=== PATIENT | male | born 1950 | race Caucasian/White ===

== ENCOUNTER → 2017-08-02 | Outpatient (CLI) | payer MEDICARE ==
[2016-04-21 10:34] VITALS: BMI 36.0
[~2017-08-02] MED LIST: ATOR20TA65 PO; ATOR40TA69 PO; CEPH500T7 PO; CIPR-344 PO; DOCU-416 PO; FAMO20TA28 PO; FLUO-202 PO; FLUO20TA2 PO; FLUO40CA67 PO; FLUO40CA76 PO; FLUO60TA PO; HYDR12.561 PO; LISI-351 PO; LISI-362 PO; METF-410 PO; METF-420 PO; SULF-198 PO; TRAZ-163 PO
== END ==
LOC: LAB 08:34
PROVIDERS: ATTEND Nurse Practitioner Family
DX: E11.65 Type 2 diabetes mellitus with hyperglycemia (principal); Z79.899 Other long term (current) drug therapy
CPT/HCPCS: 36415; 82040; 82247; 82310; 82374; 82435; 82565; 82947; 83036; 84075; 84132; 84155; 84295; 84450; 84460; 84520

== ENCOUNTER 2017-09-12 21:24 | Emergency (ER) | payer MEDICARE ==
[2016-04-21 10:34] VITALS: Wt 102.1 kg
--- NOTE | 2017-09-12 21:37 | ER Report ---
History and Physical Time Seen By MD: 21:37 Hx. of Stated Complaint: Patient is contemplating HPI/ROS CHIEF COMPLAINT: Suicidal ideation HISTORY OF PRESENT ILLNESS: 66-year-old male presents ambulatory to the ER states he's having suicidal ideation. He has no specific plan. He was recently evicted from his apartment 3 days ago. He's been living with some friends who were not supportive of him in any way. He was wandering around town today overwhelmed with his situation. He is noninsulin-dependent diabetic. He is poorly compliant in his management of his diabetes. He denies drug or alcohol use. Patient has a distant history of admission to [facility] in 2013 for depression and suicidal ideation. REVIEW OF SYSTEMS: Respiratory: No cough, no dyspnea. Cardiovascular: No chest pain, no palpitations. Gastrointestinal: No vomiting, no abdominal pain. Musculoskeletal: No back pain. Allergies: Coded Allergies: No Known Drug Allergies (Unverified , 04/19/16) Home Meds Active Scripts Metformin Hcl (METFORMIN HCL) 1,000 Mg Tablet, 1 TAB PO BID, #60 TAB 0 Refills Prov:RINKU PALMER NP 02/25/16 Lisinopril/Hydrochlorothiazide (LISINOPRIL-HCTZ 10-12.5 MG TAB) 1 Each Tablet, 1 TAB PO DAILY, #30 TAB 0 Refills Prov:NAZ WRIGHT MD 02/11/16 Fluoxetine Hcl (PROZAC) 40 Mg Capsule, 1 TAB PO QDAY, #90 CAPSULE 1 Refill Prov:NAZ WRIGHT MD 08/03/15 Reported Medications Docusate Sodium (COLACE) 100 Mg Capsule, 100 MG PO BID, #30 CAPSULE 05/12/16 Famotidine (PEPCID) 20 Mg Tablet, 20 MG PO BID, #20 TAB 04/26/16 Discontinued Reported Medications Ciprofloxacin Hcl (CIPRO) 500 Mg Tablet, 500 MG PO BID, #30 Start Sunday PM 05/12/16 Reviewed Nurses Notes: Yes Old Medical Records Reviewed: Yes Hx Smoking: Yes (SMOKED 1 1/2 PPD FOR 35 YEARS) Smoking Status: Former Smoker Exposure to Second Hand Smoke?: No Hx Substance Use Disorder: No Hx Alcohol Use: Yes Constitutional Vital Sign - Last 24 Hours 09/12/17 09/12/17 09/12/17 09/12/17 21:28 21:31 21:34 21:36 Temp 98.2 Pulse 92 103 Resp 20 B/P (MAP) 191/109 191/109 (136) 173/113 (133) Pulse Ox 93 93 O2 Delivery Room Air 09/12/17 09/12/17 09/12/17 09/12/17 21:39 21:44 21:49 21:54 Pulse 92 84 85 86 Pulse Ox 91 94 91 91 09/12/17 09/12/17 09/12/17 09/12/17 21:59 22:04 22:09 22:14 Pulse 86 90 87 84 Pulse Ox 94 88 89 89 09/12/17 09/12/17 09/12/17 09/12/17 22:19 22:24 22:29 22:34 Pulse 86 84 88 83 Pulse Ox 89 88 88 88 09/12/17 09/12/17 09/12/17 09/12/17 22:39 22:44 22:49 22:54 Pulse 84 88 Pulse Ox 93 96 87 91 09/12/17 09/12/17 09/12/17 09/12/17 22:59 23:00 23:04 23:09 Pulse 82 81 B/P (MAP) 176/112 (133) Pulse Ox 92 89 92 09/12/17 23:14 Pulse 86 Pulse Ox 95 Physical Exam Vital signs stable, blood pressure grossly elevated afebrile, pulse ox normal General Appearance: The patient is alert, has no immediate need for airway protection and no current signs of toxicity. No acute distress, tangential in his reasoning HEENT: Pupils equal and round no injection. Oropharynx without redness or exudate, mucous members are moist Respiratory: Chest is non tender, lungs are clear to auscultation. Cardiac: regular rate and rhythm Gastrointestinal: Abdomen is soft and non tender, no masses, bowel sounds normal. Musculoskeletal: Neck: Neck is supple and non tender. No thyromegaly, no lymphadenopathy Extremities have full range of motion and are non tender. No edema, no calf tenderness Skin: No rashes or lesions. DIFFERENTIAL DIAGNOSIS: After history and physical exam differential diagnosis was considered for depression including functional and major depression, situational depression, medication side effect, drugs and alcohol abuse. Medical Decision Making Data Points Result Diagram: 09/12/17220209/12/172202 Laboratory Hematology Test 09/12/17 21:32 09/12/17 22:03 Urine Color Yellow Urine Clarity Clear Urine pH 5.0 pH (4.8-9.5) Urine Specific Gloster 1.025 Urine Protein 100 mg/dL (NEGATIVE) Urine Glucose (UA) 500 mg/dL (NEGATIVE) Urine Ketones Negative mg/dL (NEGATIVE) Urine Blood Small (NEGATIVE) Urine Nitrite Negative (NEGATIVE) Urine Bilirubin Negative (NEGATIVE) Urine Urobilinogen Negative mg/dL (0.2-1.9) Urine Leukocyte Esterase Negative (NEGATIVE) Urine RBC <1 /HPF (0-2/HPF) Urine WBC 1 /HPF (0-5/HPF) Urine Squamous Epithelial Cells Few /LPF (</=FEW) Urine Bacteria Negative /HPF (NONE-FEW) Urine Mucus None /HPF (NONE-FEW) Urine Opiates Screen Negative Urine Barbiturates Screen Negative Ur Tricyclic Antidepressants Screen Negative Urine Phencyclidine Screen Negative Urine Amphetamines Screen Negative Urine Benzodiazepines Screen Negative Urine Cocaine Screen Negative Urine Cannabinoids Screen Negative Red Blood Count 5.55 M/uL (4.00-5.60) Mean Corpuscular Volume 79.6 fL (80.0-96.0) Mean Corpuscular Hemoglobin 27.4 pg (26.0-33.0) Mean Corpuscular Hemoglobin Concent 34.4 g/dL (32.0-36.0) Red Cell Distribution Width 14.8 % (11.5-14.5) Mean Platelet Volume 8.7 fL (7.2-11.1) Neutrophils (%) (Auto) 60.9 % (39.4-72.5) Lymphocytes (%) (Auto) 28.3 % (17.6-49.6) Monocytes (%) (Auto) 7.8 % (4.1-12.4) Eosinophils (%) (Auto) 1.7 % (0.4-6.7) Basophils (%) (Auto) 1.3 % (0.3-1.4) Nucleated RBC Relative Count (auto) 0.2 /100WBC Neutrophils # (Auto) 6.1 K/uL (2.0-7.4) Lymphocytes # (Auto) 2.8 K/uL (1.3-3.6) Monocytes # (Auto) 0.8 K/uL (0.3-1.0) Eosinophils # (Auto) 0.2 K/uL (0.0-0.5) Basophils # (Auto) 0.1 K/uL (0.0-0.1) Nucleated RBC Absolute Count (auto) 0.02 K/uL Sodium Level 130 mmol/L (137-145) Potassium Level 4.2 mmol/L (3.5-5.0) Chloride Level 97 mmol/L (98-107) Carbon Dioxide Level 22 mmol/L (22-30) Blood Urea Nitrogen 22 mg/dl (9-21) Creatinine 1.10 mg/dl (0.66-1.25) Glomerular Filtration Rate Calc > 60.0 Random Glucose 351 mg/dl (75-110) Calcium Level 8.5 mg/dl (8.4-10.2) Magnesium Level 1.9 mg/dl (1.7-2.2) Total Bilirubin 0.8 mg/dl (0.2-1.3) Aspartate Amino Transf (AST/SGOT) 36 U/L (0-35) Alanine Aminotransferase (ALT/SGPT) 55 U/L (0-56) Alkaline Phosphatase 80 U/L (0-126) Total Protein 6.9 gm/dl (6.3-8.2) Albumin 3.7 g/dl (3.5-5.0) Salicylates Level < 10 mg/L Salicylate Last Dose Date unk Acetaminophen Level < 10 ug/ml Serum Alcohol < 10 mg/dl Chemistry Test 09/12/17 21:32 09/12/17 22:03 Urine Color Yellow Urine Clarity Clear Urine pH 5.0 pH (4.8-9.5) Urine Specific Gloster 1.025 Urine Protein 100 mg/dL (NEGATIVE) Urine Glucose (UA) 500 mg/dL (NEGATIVE) Urine Ketones Negative mg/dL (NEGATIVE) Urine Blood Small (NEGATIVE) Urine Nitrite Negative (NEGATIVE) Urine Bilirubin Negative (NEGATIVE) Urine Urobilinogen Negative mg/dL (0.2-1.9) Urine Leukocyte Esterase Negative (NEGATIVE) Urine RBC <1 /HPF (0-2/HPF) Urine WBC 1 /HPF (0-5/HPF) Urine Squamous Epithelial Cells Few /LPF (</=FEW) Urine Bacteria Negative /HPF (NONE-FEW) Urine Mucus None /HPF (NONE-FEW) Urine Opiates Screen Negative Urine Barbiturates Screen Negative Ur Tricyclic Antidepressants Screen Negative Urine Phencyclidine Screen Negative Urine Amphetamines Screen Negative Urine Benzodiazepines Screen Negative Urine Cocaine Screen Negative Urine Cannabinoids Screen Negative White Blood Count 10.1 k/uL (4.5-11.0) Red Blood Count 5.55 M/uL (4.00-5.60) Hemoglobin 15.2 g/dL (14.0-18.0) Hematocrit 44.2 % (42.0-52.0) Mean Corpuscular Volume 79.6 fL (80.0-96.0) Mean Corpuscular Hemoglobin 27.4 pg (26.0-33.0) Mean Corpuscular Hemoglobin Concent 34.4 g/dL (32.0-36.0) Red Cell Distribution Width 14.8 % (11.5-14.5) Platelet Count 264 K/uL (150-450) Mean Platelet Volume 8.7 fL (7.2-11.1) Neutrophils (%) (Auto) 60.9 % (39.4-72.5) Lymphocytes (%) (Auto) 28.3 % (17.6-49.6) Monocytes (%) (Auto) 7.8 % (4.1-12.4) Eosinophils (%) (Auto) 1.7 % (0.4-6.7) Basophils (%) (Auto) 1.3 % (0.3-1.4) Nucleated RBC Relative Count (auto) 0.2 /100WBC Neutrophils # (Auto) 6.1 K/uL (2.0-7.4) Lymphocytes # (Auto) 2.8 K/uL (1.3-3.6) Monocytes # (Auto) 0.8 K/uL (0.3-1.0) Eosinophils # (Auto) 0.2 K/uL (0.0-0.5) Basophils # (Auto) 0.1 K/uL (0.0-0.1) Nucleated RBC Absolute Count (auto) 0.02 K/uL Glomerular Filtration Rate Calc > 60.0 Calcium Level 8.5 mg/dl (8.4-10.2) Magnesium Level 1.9 mg/dl (1.7-2.2) Total Bilirubin 0.8 mg/dl (0.2-1.3) Aspartate Amino Transf (AST/SGOT) 36 U/L (0-35) Alanine Aminotransferase (ALT/SGPT) 55 U/L (0-56) Alkaline Phosphatase 80 U/L (0-126) Total Protein 6.9 gm/dl (6.3-8.2) Albumin 3.7 g/dl (3.5-5.0) Salicylates Level < 10 mg/L Salicylate Last Dose Date unk Acetaminophen Level < 10 ug/ml Serum Alcohol < 10 mg/dl Toxicology Test 09/12/17 21:32 09/12/17 22:03 Urine Opiates Screen Negative Urine Barbiturates Screen Negative Ur Tricyclic Antidepressants Screen Negative Urine Phencyclidine Screen Negative Urine Amphetamines Screen Negative Urine Benzodiazepines Screen Negative Urine Cocaine Screen Negative Urine Cannabinoids Screen Negative Salicylates Level < 10 mg/L Salicylate Last Dose Date unk Acetaminophen Level < 10 ug/ml Serum Alcohol < 10 mg/dl Urinalysis Test 09/12/17 21:32 Urine Color Yellow Urine Clarity Clear Urine pH 5.0 pH (4.8-9.5) Urine Specific Gloster 1.025 Urine Protein 100 mg/dL (NEGATIVE) Urine Glucose (UA) 500 mg/dL (NEGATIVE) Urine Ketones Negative mg/dL (NEGATIVE) Urine Blood Small (NEGATIVE) Urine Nitrite Negative (NEGATIVE) Urine Bilirubin Negative (NEGATIVE) Urine Urobilinogen Negative mg/dL (0.2-1.9) Urine Leukocyte Esterase Negative (NEGATIVE) Urine RBC <1 /HPF (0-2/HPF) Urine WBC 1 /HPF (0-5/HPF) Urine Squamous Epithelial Cells Few /LPF (</=FEW) Urine Bacteria Negative /HPF (NONE-FEW) Urine Mucus None /HPF (NONE-FEW) ED Course/Re-evaluation ED Course Patient was minute to an examination room. H&P was done. The differential diagnoses was considered. On clinical examination. Patient has stable vital signs his blood pressure is elevated. He is expressing suicidal ideation. He voluntarily wants to be admitted to [facility]. Diagnostic evaluation is performed. Patient's medicated with lisinopril 10 mg for his blood pressure. His sodium is low at 1:30. His glucose is 350. I suspect he's not been compliant on his metformin and his blood pressure medication. He states he is homeless since she was kicked out of his apartment 3 days ago. He is medically cleared. He is admitted to behavioral service, case is discussed with Dr. Mann 09/12/2017 11:06:32 pm case discussed with Dr. Mann psychiatrist on-call, who accepts patient for admission to behavioral health Decision to Disposition Date: Sep 12, 2017 Decision to Disposition Time: 23:06 Depart Departure Latest Vital Signs Vital Signs Date Time Temp Pulse Resp B/P (MAP) Pulse Ox O2 Delivery O2 Flow Rate FiO2 09/12/17 23:14 86 95 09/12/17 23:00 176/112 (133) 09/12/17 21:28 98.2 20 Room Air Impression: Primary Impression: Depression with suicidal ideation Additional Impressions: Hyperglycemia due to type 2 diabetes mellitus Hypertension Elevated PSA Condition: Improved Disposition: XFER TO [facility] Problem Qualifiers Additional Impressions: Hyperglycemia due to type 2 diabetes mellitus 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
[2017-09-12 22:13] LABS: PLATELET COUNT, AUTOMATED 264 K/uL (150-450)
[2017-09-12 23:00] VITALS: BP 176/112
[2017-09-12] MEDS ORDERED: LISINOPRIL 10 MG TAB PO ONE (23:10)
[2017-09-13] MEDS ORDERED: ATOR40TA24 PO (10:11)
[2017-09-13] MEDS ORDERED: GLIP-152 PO (10:11)
[2017-09-13] MEDS ORDERED: LISI-362 PO (10:11)
== END 2017-09-12 23:20 ==
LOC: ER 21:43
DX: F32.9 Major depressive disorder, single episode, unspecified (principal); R45.851 Suicidal ideations; E11.65 Type 2 diabetes mellitus with hyperglycemia; I10 Essential (primary) hypertension
CPT/HCPCS: 80305; 81001; 83735; 84443; 85025; 99285; A9270; G0480; 80320; 80329; 82040; 82247; 82310; 82374; 82435; 82565; 82947; 84075; 84132; 84155; 84295; 84450; 84460; 84520

== ENCOUNTER 2017-09-12 23:04 | Inpatient (IN) | payer MEDICARE ==
[2016-04-21 10:34] VITALS: Ht 162.6 cm; Wt 102.1 kg
[~2017-09-12] VITALS: Ht 162.6 cm; Wt 102.1 kg
[2017-09-13 00:34] VITALS: BP 161/103
[2017-09-13] MEDS ORDERED: MAG HYD/AL HYD/SIMETH 30ML UDC PO PRN (01:00)
[2017-09-13] MEDS ORDERED: ACETAMINOPHEN 325 MG TAB PO PRN (01:00)
[2017-09-13 07:29] LABS: PLATELET COUNT, AUTOMATED 255 K/uL (150-450)
[2017-09-13] MEDS: MULTIVITAMINS TAB PO SCH (08:33)
[2017-09-13] MEDS ORDERED: LISINOPRIL 20 MG TAB PO SCH (09:25)
[2017-09-13] MEDS ORDERED: glipiZIDE 5 MG TAB PO SCH (09:25)
[2017-09-13] MEDS: metFORMIN HCL XR 500 MG TABCR PO SCH ×2 (09:40→21:00)
[2017-09-13] MEDS ORDERED: glipiZIDE XL 5 MG TABCR PO SCH (09:50)
[2017-09-13] MEDS ORDERED: ATOR40TA24 PO (10:11)
[2017-09-13] MEDS ORDERED: GLIP-152 PO (10:11)
[2017-09-13] MEDS ORDERED: LISI-362 PO (10:11)
[2017-09-13 11:43] VITALS: BP 138/88
[2017-09-13] MEDS ORDERED: INFLUENZA VIRUS VAC 0.5 ML SYR IM ONLY ONE (14:00)
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
[2017-09-13] MEDS: glipiZIDE 5 MG TAB PO SCH (21:07)
[2017-09-13 23:04] VITALS: BP 166/94
[2017-09-14 03:30] VITALS: BP 168/98
[2017-09-14 06:00] VITALS: BP 132/72
[2017-09-14] MEDS: MULTIVITAMINS TAB PO SCH (08:45)
[2017-09-14] MEDS: OMEGA-3 500 MG CAP PO SCH (08:45)
[2017-09-14] MEDS: metFORMIN HCL XR 500 MG TABCR PO SCH ×2 (08:45→20:59)
[2017-09-14] MEDS: glipiZIDE 5 MG TAB PO SCH (08:45)
[2017-09-14] MEDS: CHOLECALCIFEROL 1000 UNIT TAB PO SCH (08:46)
[2017-09-14] MEDS: LISINOPRIL PO SCH (08:48)
[2017-09-14] MEDS ORDERED: LISINOPRIL 20 MG TAB PO SCH (09:00)
[2017-09-14 12:50] VITALS: BP 185/102
--- NOTE | 2017-09-14 15:47 | BHS Progress Note ---
[facility] - Subjective Progress Notes Subjective Pt seen in treatment team meeting with his outpatient therapist and a staff person from [facility] present on speaker phone. Pt reporting "pretty good mood". Expressing frustration about how inspector tool at his housing had been critical of the unkempt condition of his bathroom. Able to problem- solve effectively today regarding hiring someone to support him with housekeeping. Denies SI. Denies depressed mood. Sleep and appetite are good. Blood sugar this am was 127. Of note, pt's MOCA score is 17, and result has NOT changed appreciably since pt's last admission here in 2012-- thus it does NOT appear that he has a dementia that is progressing, but rather underlying unspecified neurocognitive disorder-- mostly involves verbal/word-finding. Suicidal Ideation: None Homicidal Ideation: None [facility] - Objective Physical Exam Vital Signs Vital Signs 09/14/17 12:50 Temp 99.6 Pulse 81 Resp 16 B/P (MAP) 185/102 (129) Pulse Ox 94 O2 Delivery Room Air Muscle Strength and Tone: WNL Gait and Station: Steady Allergies Reviewed: Yes Mental Status Exam General Appearance: Casual, Good Eye Contact, Cooperative, Polite, Good Interaction Speech: Clear, Spontaneous, Normal Rate, Normal Rhythm, Normal Volume, Normal Tone Mood: Euthymic Affect: Calm Thought Process: Organized, Logical, Goal Directed Thought Content: No Suicidal Ideation, No Homicidal Ideation, No Delusions, No Auditory Halllucinations, No Visual Hallucinations, No Thought Broadcasting, No Ideas of Reference, No Obsessions, No Compulsions, No Other Sensorium: Clear Cognition: Alert & Oriented-Person, Alert & Oriented-Place, Alert & Oriented- Time, Nkphp-Ctosscrj-Xceurrjen Memory: Other (Some deficits.) Intelligence: Average Insight Judgment: Fair Result Diagram: 09/13/17 0655 09/13/17 0655 Lab Hematology Test 09/13/17 06:55 09/14/17 05:50 Red Blood Count 5.57 M/uL (4.00-5.60) Mean Corpuscular Volume 79.0 fL (80.0-96.0) Mean Corpuscular Hemoglobin 27.1 pg (26.0-33.0) Mean Corpuscular Hemoglobin Concent 34.4 g/dL (32.0-36.0) Red Cell Distribution Width 14.7 % (11.5-14.5) Mean Platelet Volume 8.6 fL (7.2-11.1) Neutrophils (%) (Auto) 61.2 % (39.4-72.5) Lymphocytes (%) (Auto) 27.1 % (17.6-49.6) Monocytes (%) (Auto) 7.8 % (4.1-12.4) Eosinophils (%) (Auto) 2.8 % (0.4-6.7) Basophils (%) (Auto) 1.1 % (0.3-1.4) Nucleated RBC Relative Count (auto) 0.3 /100WBC Neutrophils # (Auto) 5.0 K/uL (2.0-7.4) Lymphocytes # (Auto) 2.2 K/uL (1.3-3.6) Monocytes # (Auto) 0.6 K/uL (0.3-1.0) Eosinophils # (Auto) 0.2 K/uL (0.0-0.5) Basophils # (Auto) 0.1 K/uL (0.0-0.1) Nucleated RBC Absolute Count (auto) 0.02 K/uL Peripheral Blood Smear Yes Y/N Sodium Level 135 mmol/L (137-145) Potassium Level 3.9 mmol/L (3.5-5.0) Chloride Level 100 mmol/L (98-107) Carbon Dioxide Level 23 mmol/L (22-30) Blood Urea Nitrogen 17 mg/dl (9-21) Creatinine 1.00 mg/dl (0.66-1.25) Glomerular Filtration Rate Calc > 60.0 Random Glucose 271 mg/dl (75-110) Hemoglobin A1c 10.3 % (4.6-6.0) Calcium Level 8.9 mg/dl (8.4-10.2) Total Bilirubin 0.8 mg/dl (0.2-1.3) Aspartate Amino Transf (AST/SGOT) 24 U/L (0-35) Alanine Aminotransferase (ALT/SGPT) 48 U/L (0-56) Alkaline Phosphatase 73 U/L (0-126) Total Protein 6.2 gm/dl (6.3-8.2) Albumin 3.4 g/dl (3.5-5.0) Vitamin D 25-Hydroxy < 13 ng/ml (30-100) Free Thyroxine 1.09 ng/dl (0.78-2.19) Whole Blood Glucose 127 mg/DL (75-110) Chemistry Test 09/13/17 06:55 09/14/17 05:50 White Blood Count 8.2 k/uL (4.5-11.0) Red Blood Count 5.57 M/uL (4.00-5.60) Hemoglobin 15.1 g/dL (14.0-18.0) Hematocrit 44.0 % (42.0-52.0) Mean Corpuscular Volume 79.0 fL (80.0-96.0) Mean Corpuscular Hemoglobin 27.1 pg (26.0-33.0) Mean Corpuscular Hemoglobin Concent 34.4 g/dL (32.0-36.0) Red Cell Distribution Width 14.7 % (11.5-14.5) Platelet Count 255 K/uL (150-450) Mean Platelet Volume 8.6 fL (7.2-11.1) Neutrophils (%) (Auto) 61.2 % (39.4-72.5) Lymphocytes (%) (Auto) 27.1 % (17.6-49.6) Monocytes (%) (Auto) 7.8 % (4.1-12.4) Eosinophils (%) (Auto) 2.8 % (0.4-6.7) Basophils (%) (Auto) 1.1 % (0.3-1.4) Nucleated RBC Relative Count (auto) 0.3 /100WBC Neutrophils # (Auto) 5.0 K/uL (2.0-7.4) Lymphocytes # (Auto) 2.2 K/uL (1.3-3.6) Monocytes # (Auto) 0.6 K/uL (0.3-1.0) Eosinophils # (Auto) 0.2 K/uL (0.0-0.5) Basophils # (Auto) 0.1 K/uL (0.0-0.1) Nucleated RBC Absolute Count (auto) 0.02 K/uL Peripheral Blood Smear Yes Y/N Glomerular Filtration Rate Calc > 60.0 Hemoglobin A1c 10.3 % (4.6-6.0) Calcium Level 8.9 mg/dl (8.4-10.2) Total Bilirubin 0.8 mg/dl (0.2-1.3) Aspartate Amino Transf (AST/SGOT) 24 U/L (0-35) Alanine Aminotransferase (ALT/SGPT) 48 U/L (0-56) Alkaline Phosphatase 73 U/L (0-126) Total Protein 6.2 gm/dl (6.3-8.2) Albumin 3.4 g/dl (3.5-5.0) Vitamin D 25-Hydroxy < 13 ng/ml (30-100) Free Thyroxine 1.09 ng/dl (0.78-2.19) Whole Blood Glucose 127 mg/DL (75-110) [facility] Assessment and Plan Ogjf-kw-Rhng Encounter Date: Sep 14, 2017 Pgnp-nc-Oydu Encounter Time: 10:00 [facility] Plan: Admit to Unit, Necessary Precautions, Individual/Group Therapy, Admin /Titrate Meds, Educate Patient Tobacco Medications: Started Problems: (1) Neurocognitive disorder Status: Chronic Assessment & Plan: MOCA score unchanged from previous admission. Overall score is 17, certainly indicating significant impairment-- pt not able to function safely without support. We are working on arranging home health nurse to monitor pt's medications, since it appears he may have not been taking them properly prior to admission. Also arranging support for housekeeping to maintain safe level of cleanliness. Additionally, low MOCA score with concrete thinking and word-finding deficits contributes to pt. not able to handle feedback-- he felt overly criticized and unable to utilize more sophisticated defenses, leading to anger, running away, and suicidal thoughts. (2) Depression with suicidal ideation Status: Acute Assessment & Plan: SI resolving. Pt denies depressed mood today. Concern that pt susceptible to regression again with SI if released from hospital prior to getting his housing situation sorted out. He still is quite "wounded" over his experience and felt overly criticized with feedback that his bathroom was dirty. Became emotional over this today, though did respond well to support. YESSY MORALES MD Sep 14, 2017 15:47
[2017-09-15 06:09] VITALS: BP 124/58
[2017-09-15] MEDS: CHOLECALCIFEROL 1000 UNIT TAB PO SCH (08:31)
[2017-09-15] MEDS: LISINOPRIL PO SCH (08:32)
[2017-09-15] MEDS: OMEGA-3 500 MG CAP PO SCH (08:32)
[2017-09-15] MEDS: metFORMIN HCL XR 500 MG TABCR PO SCH ×2 (08:32→21:39)
[2017-09-15] MEDS: glipiZIDE 5 MG TAB PO SCH (08:32)
[2017-09-15] MEDS: MULTIVITAMINS TAB PO SCH (08:32)
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
[2017-09-15] MEDS: CITALOPRAM HYDROBROM 20 MG TAB PO SCH (13:28)
[2017-09-15 13:35] VITALS: BP 138/88
[2017-09-15 22:45] VITALS: BP 148/82
[2017-09-16 05:30] VITALS: BP 136/82
[2017-09-16 07:00] VITALS: BP 171/105
[2017-09-16] MEDS: metFORMIN HCL XR 500 MG TABCR PO SCH ×2 (08:25→21:14)
[2017-09-16] MEDS: CHOLECALCIFEROL 1000 UNIT TAB PO SCH (08:25)
[2017-09-16] MEDS: OMEGA-3 500 MG CAP PO SCH (08:25)
[2017-09-16] MEDS: LISINOPRIL PO SCH (08:25)
[2017-09-16] MEDS: glipiZIDE 5 MG TAB PO SCH (08:26)
[2017-09-16] MEDS: CITALOPRAM HYDROBROM 20 MG TAB PO SCH (08:26)
[2017-09-16] MEDS: MULTIVITAMINS TAB PO SCH (08:26)
--- NOTE | 2017-09-16 10:28 | Medical Nutrition Therapy ---
Nutritional Education Nutrition Education Topic: Diabetic Nutrition Learning Readiness: Interested Teaching Methods: Discussion, Handout Response to Teaching: Verbalize understanding Teaching Recipient: Patient Nutrition Counseling: Provided low literacy handout on heatlhy eating for diabetes with focus on plate method. Reviewed foods that can increase BG and food that do not. Discussed ordering foods in facility and recommend pt keep CHO food to 3-4 items. Will cont to monitor. Nutrition Monitoring & Eval RD Patient Assessment Time: [address] Assessment Type: RD Education Nutritional Comment: Provided 30 minutes diabetes education focusing on nutrition. Copies To Copies to: YESSY MORALES MD, BETH Sep 16, 2017 10:28
--- NOTE | 2017-09-16 14:13 | BHS Progress Note ---
[facility] - Subjective Progress Notes Subjective Pt seen with team. Pt reports mild insomnia last night, and a good enough mood today. Tolerated restarting celexa well, denies medication side effects. He was not tearful today. We discussed his [facility] to [facility] apartment, tentatively scheduled for tomorrow. Pt's neurocognitive disorder still unchanged, with word-finding difficulties, confusing tangents, at times mixing up details of history. But overall he seems to be reasoning better, and is doing some advance anticipatory problem-solving for himself regarding returning home. Blood sugars have been under decent control. Will continue celexa 20mg today. Pt denying suicidal ideation. Suicidal Ideation: None Homicidal Ideation: None [facility] - Objective Physical Exam Vital Signs Vital Signs 09/16/17 07:00 Temp 98.6 Pulse 84 Resp 16 B/P (MAP) 171/105 (127) Pulse Ox 94 O2 Delivery Room Air Muscle Strength and Tone: WNL Gait and Station: Steady Allergies Reviewed: Yes Mental Status Exam General Appearance: Casual, Good Eye Contact, Cooperative, Polite, Good Interaction Speech: Clear, Spontaneous, Normal Rate, Normal Rhythm, Normal Volume, Normal Tone Mood: Dysthmic/Depressed (tearful several times talking about his depression), Euthymic Affect: Calm, Sad, Other (superficially bright at times) Thought Process: Organized, Logical, Goal Directed Thought Content: No Suicidal Ideation, No Homicidal Ideation, No Delusions, No Auditory Halllucinations, No Visual Hallucinations, No Thought Broadcasting, No Ideas of Reference, No Obsessions, No Compulsions, No Other Sensorium: Clear Cognition: Alert & Oriented-Person, Alert & Oriented-Place, Alert & Oriented- Time, Pcgla-Erdlltjj-Wxdzxvein Memory: Other (Some deficits.) Intelligence: Average Insight Judgment: Fair Result Diagram: 09/13/17 0655 09/13/17 0655 [facility] Assessment and Plan Buee-zf-Lqzo Encounter Date: Sep 16, 2017 Hngf-lj-Afmc Encounter Time: 09:00 [facility] Plan: Admit to Unit, Necessary Precautions, Individual/Group Therapy, Admin /Titrate Meds, Educate Patient Tobacco Medications: Started Problems: (1) Neurocognitive disorder Status: Chronic (2) Depression with suicidal ideation Status: Acute YESSY MORALES MD Sep 16, 2017 14:13
[2017-09-16 17:20] VITALS: BP 160/92
[2017-09-17] MEDS: metFORMIN HCL XR 500 MG TABCR PO SCH (08:28)
[2017-09-17] MEDS: LISINOPRIL PO SCH (08:28)
[2017-09-17] MEDS: CHOLECALCIFEROL 1000 UNIT TAB PO SCH (08:28)
[2017-09-17] MEDS: glipiZIDE 5 MG TAB PO SCH (08:28)
[2017-09-17] MEDS: MULTIVITAMINS TAB PO SCH (08:29)
[2017-09-17] MEDS: OMEGA-3 500 MG CAP PO SCH (08:29)
[2017-09-17] MEDS: CITALOPRAM HYDROBROM 20 MG TAB PO SCH (08:29)
[2017-09-17] MEDS ORDERED: CHOL10005 PO (09:56)
[2017-09-17] MEDS ORDERED: MULT-865 PO (09:56)
[2017-09-17] MEDS ORDERED: OMEG-23 PO (09:57)
[2017-09-17] MEDS ORDERED: CITA-156 PO (09:57)
--- NOTE | 2017-09-17 15:07 | BHS Discharge Summary ---
[facility] Discharge Summary Uvrw-pa-Vxxy Encounter Date: Sep 17, 2017 Pjoz-ax-Ypsq Encounter Time: 10:30 Reason-Hosp/Final Diag (DSM-V): (1) Neurocognitive disorder Status: Chronic Hospital Course & Plan: Pt was admitted voluntarily to [facility] and he was cooperative throughout his hospital stay, attending all groups and individual therapies. Sleep and appetite were good-- he did meet with records management director who reviewed diabetic diet with him. Hgb A1c was 10.3 on admission, blood sugar was 116 by accucheck the day before discharge. He was monitored for pulse ox throughout the night one night and only showed one episode of minor de- saturation, so no sleep study was indicated. A MOCA cognitive exam was administered, and of note, he scored a 17 (significant impairment), which is essentially stable compared to MOCA exam score of 16 during his last in-patient stay in 2012. His MOCA reveals deficits in language, and indeed in conversation with pt one easily notes word-finding difficulties and word- substitutions. Pt was re-started on celexa (which he says benefitted him in the past) due to xivj-on-mpihfpjc depressive symptoms-- reports of depressed mood at home, feeling hopeless, crying daily, and noted tearfulness while on the unit -- especially when discussing his anger when he felt over criticized about his bathroom being dirty-- the incident that prompted this admission. Treatment team meetings were held including pt's out-patient therapist and the gang supervisor pipe lines at [facility]. The team agreed to help pt increase his in- home supports, including finding someone to assist with housekeeping, as well as a visiting nurse to assist with medication management. Pt felt very supported by these people and these measures. He denied suicidal ideation throughout his hospital stay, and by day of discharge mood was improved, and pt stable for discharge back home. He has a meeting scheduled tomorrow with Jt, and with his therapist Rosario Robin. He will follow up with his out-patient provider Madelyn Morrell for medications. (2) Depression with suicidal ideation Status: Acute Physical Exam Latest Vital Signs Vital Signs 09/16/17 17:20 Temp 99.3 Pulse 77 Resp 16 B/P (MAP) 160/92 (114) Pulse Ox 94 O2 Delivery Room Air Mental Status Exam General Appearance: Casual, Well Groomed, Good Eye Contact, Cooperative, Polite , Good Interaction Speech: Clear, Spontaneous, Normal Rate, Normal Rhythm, Normal Volume, Normal Tone Mood: Euthymic Affect: Full and Appropriate, Calm, Other (superficially bright at times) Thought Process: Organized, Logical, Goal Directed Thought Content: No Suicidal Ideation, No Homicidal Ideation, No Delusions, No Auditory Halllucinations, No Visual Hallucinations, No Thought Broadcasting, No Ideas of Reference, No Obsessions, No Compulsions, No Other Sensorium: Clear Cognition: Alert & Oriented-Person, Alert & Oriented-Place, Alert & Oriented- Time, Bbktq-Zppiryvk-Tujgbnwag Memory: Other (Some deficits.) Intelligence: Average Insight Judgment: Fair Departure Result Diagram: 09/13/1765409/13/17654 Condition: Improved Discharge to: Home Discharge Instructions Home Meds Active Scripts Metformin Hcl (METFORMIN HCL) 1,000 Mg Tablet, 1 TAB PO BID, #60 TAB 0 Refills Prov:RINKU PALMER Ca [place] 02/25/16 Reported Medications Citalopram Hydrobromide (CELEXA) 20 Mg Tablet, 20 MG PO QDAY, #5 TAB 09/17/17 Sumner-3 Fatty Acids/Fish Oil (FISH OIL 1,000 MG SOFTGEL) 1 Each Capsule, 1 EACH PO DAILY, CAPSULE 09/17/17 Cholecalciferol (Vitamin D3) (VITAMIN D3) 1,000 Unit Tablet, 3000 UNIT PO DAILY , TAB 09/17/17 Multivitamin (DAILY MULTIPLE VITAMIN) 1 Each Tablet, 1 EACH PO DAILY 09/17/17 Lisinopril (LISINOPRIL) 10 Mg Tablet, 30 MG PO QDAY, TAB 09/13/17 Glipizide (GLIPIZIDE) 5 Mg Tablet, 5 MG PO DAILY 09/13/17 Atorvastatin Calcium (LIPITOR) 40 Mg Tablet, 1 TAB PO QHS, TAB 09/13/17 Discontinued Reported Medications Ciprofloxacin Hcl (CIPRO) 500 Mg Tablet, 500 MG PO BID, #30 Start Sunday PM 05/12/16 Diet: Diabetic Activity: As Tolerated Special Instructions: Discharge today. Follow up with Home Health Care and outpatient therapy and medication management. YESSY MORALES MD Sep 17, 2017 15:07
== END 2017-09-17 13:00 | disposition home or self-care (01) | DRG 881 ==
LOC: BHS 23:04
PROVIDERS: ADMIT Psychiatry & Neurology Psychiatry; ATTEND Psychiatry & Neurology Psychiatry
DX: F32.9 Major depressive disorder, single episode, unspecified (principal); R45.851 Suicidal ideations; G31.84 Mild cognitive impairment of uncertain or unknown etiology; E11.9 Type 2 diabetes mellitus without complications; Z91.5 Personal history of self-harm; Z81.1 Family history of alcohol abuse and dependence; Z87.891 Personal history of nicotine dependence; Z23 Encounter for immunization
CPT/HCPCS: 36415; 36416; 80305; 80320; 80329; 81001; 82040; 82247; 82306; 82310; 82374; 82435; 82565; 82947; 82948; 83036; 83735; 84075; 84132; 84155; 84295; 84439; 84443; 84450; 84460; 84481; 84520; 85025; 90674; 99285

== ENCOUNTER → 2017-11-01 | Outpatient (CLI) | payer MEDICARE ==
[2016-04-21 10:34] VITALS: BMI 36.0
[~2017-11-01] MED LIST changes: +ATOR40TA24 PO; +CHOL10005 PO; +CITA-156 PO; +GLIP-152 PO; +MULT-865 PO; +OMEG-23 PO
--- NOTE | 2017-11-01 11:44 | RADIOLOGY IMAGING REPORT ---
FACILITY: [facility] PATIENT NAME: Fito Lane : 1950 MR: [id number] V: [id number] EXAM DATE: ORDERING PHYSICIAN: AHMET DURAN TECHNOLOGIST: Location: [facility] [place] Patient: Fito Lane : 1950 Visit/Account:[id number] Date of Sevice: 11/01/2017 Exam type: VENOUS DOPP LOW RIGHT EXTREMIT History: Localized edema right lower extremity Comparison: None. Findings: Right lower extremities veins were imaged including the right common femoral vein, greater saphenous vein, superficial femoral vein, popliteal vein, posterior tibial vein, anterior tibial vein, peroneal vein revealing no evidence of intraluminal thrombi. All the veins were compressible and demonstrate d normal augmentation IMPRESSION: 1. No sonographic evidence DVT involving the right lower extremity veins Report Dictated By: Summer Sheets MD at 11/01/2017 11:38 AM Report E-Signed By: Summer Sheets MD at 11/01/2017 11:40 AM WSN:[email or web address]
== END ==
LOC: US 00:49
PROVIDERS: ATTEND Nurse Practitioner Family
DX: R60.0 Localized edema (principal)

== ENCOUNTER → 2017-12-14 | Outpatient (CLI) | payer MEDICARE ==
[2016-04-21 10:34] VITALS: BMI 36.0
[~2017-12-14] MED LIST changes: -METF-410 PO; +METF-411 PO; -METF-420 PO; +METF-421 PO
--- NOTE | 2017-12-21 12:58 | RADIOLOGY IMAGING REPORT ---
FACILITY: [facility] PATIENT NAME: CURTIS GALLEGOS : [id number] MR: [id number] V: [id number] EXAM DATE: [id number] ORDERING PHYSICIAN: AHMET DURAN TECHNOLOGIST: Kelton Rose EXAMINATION:TWO-DIMENSIONAL ECHOCARDIOGRAPH REASON:EDEMA 2D Measurements (normal values in centimeters) LV endLV endRV endVent.LV PostAorticLeftPercent DiastolicSystolicDiastolicSeptumWallRootAtriumShortening (3.5-5.7)(0.9-2.6)(0.6-1.1)(0.6-1.1)(2.0-3.7)(1.9-4.0)(25-35%) [id number]% STROKE VOLUME: 50ml ESTIMATED EJECTION FRACTION:50/53% FINDINGS: Overall quality of study is adequate. Left ventricle is normal in size & contractility with normal wall motion. Ejection fraction is 60-65%. Aortic valve is trileaflet with normal excursion. Descending aorta is not dilated. Trace central aortic regurgitation is present. The mitral valve is normal with no evidence of prolapse. Left atrium is normal. Color flow imaging shows no significant mitral regurgitation. Left ventricular size & ejection fraction are normal. Tricuspid valve normal. Pulmonic valve is not well visualized but is grossly normal with trace pulmonic insufficiency. Interatrial septum shows no evidence of interatrial shunt. Diastolic function is felt to be normal. OVERALL IMPRESSION: 1. Normal left ventricular size & ejection fraction of 60-65% without segmental wall motion abnormality. 2. Trileaflet aortic valve with a trace central aortic regurgitation. 3. Normal right heart pressures & no evidence of any interatrial shunt by color flow imaging. Dictated by: Emeterio Babin M.D. on 12/14/2017 at 13:44 Transcribed by: SERGE on 12/14/2017 at 15:11 Approved by: Emeterio Babin M.D. on 12/21/2017 at 12:57 [facility]
== END ==
LOC: US 03:15
PROVIDERS: ATTEND Nurse Practitioner Family
DX: I35.1 Nonrheumatic aortic (valve) insufficiency (principal)
CPT/HCPCS: 93306

== ENCOUNTER → 2017-12-25 | Outpatient (CLI) | payer MEDICARE ==
[2016-04-21 10:34] VITALS: BMI 36.0
--- NOTE | 2017-12-25 09:07 | RADIOLOGY IMAGING REPORT ---
FACILITY: [facility] PATIENT NAME: Fito Lane : 1950 MR: [id number] V: [id number] EXAM DATE: ORDERING PHYSICIAN: AHMET DURAN TECHNOLOGIST: Location: [facility] Patient: Fito Lane : 1950 Visit/Account:[id number] Date of Sevice: 12/25/2017 EXAMINATION: Abdominal ultrasound complete HISTORY: Right upper quadrant pain, generalized abdomen pain, acid reflux COMPARISON: Liver ultrasound June 04, 2015 FINDINGS: Gallbladder: No stones, wall thickening, pericholecystic fluid or sonographic Hartmann sign. Liver: There is hepatomegaly with increased echogenicity throughout the liver which can be seen with fatty infiltration or other infiltrative process. Common duct: Normal measuring 5.2 mm. Pancreas: Partially obscured by bowel gas although the visualized portion appears grossly unremarkabl e Spleen: Normal in size and echogenicity measuring 10.9 cm in length. Kidneys: Normal in size and echogenicity, the right measures 12.2 cm in length, and the left 11.9 cm . No hydronephrosis. There is a 1.8 cm cyst and a 1.4 cm cyst upper pole of the left kidney Upper abdominal aorta and IVC: Negative. Ascites: None. IMPRESSION: Hepatomegaly with increased echogenicity throughout the liver which can be seen with fatty infiltrati on or other infiltrative process Two left renal cysts Report Dictated By: Summer Sheets MD at 12/25/2017 8:57 AM Report E-Signed By: Summer Sheets MD at 12/25/2017 9:02 AM WSN:[email or web address]
== END ==
LOC: US 02:06
PROVIDERS: ATTEND Nurse Practitioner Family
DX: K76.0 Fatty (change of) liver, not elsewhere classified (principal); N28.1 Cyst of kidney, acquired
CPT/HCPCS: 76700

== ENCOUNTER → 2017-12-27 | Outpatient (CLI) | payer MEDICARE ==
[2016-04-21 10:34] VITALS: BMI 36.0
== END ==
LOC: LAB 09:53
DX: R97.20 Elevated prostate specific antigen [PSA] (principal)
CPT/HCPCS: 36415; 84153

== ENCOUNTER 2018-04-27 16:02 | Emergency (ER) | payer MEDICARE ==
[2016-04-21 10:34] VITALS: Wt 79.4 kg
[~2018-04-27 16:02] MED LIST changes: -METF-411 PO; -METF-421 PO; +METF-450 PO; +METF-452 PO; -TRAZ-163 PO; +TRAZ100T31 PO
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
--- NOTE | 2018-04-27 17:39 | RADIOLOGY IMAGING REPORT ---
FACILITY: [facility] - [place] PATIENT NAME: Fito Lane : 1950 MR: [id number] V: [id number] EXAM DATE: ORDERING PHYSICIAN: SALVADOR ESTEVEZ TECHNOLOGIST: Location: [facility] Patient: Fito Lane : 1950 Visit/Account:[id number] Date of Sevice: 04/27/2018 INDICATION: leg pain. DATE: 04/27/2018 5:33 PM. TECHNIQUE: TIBIA FIBULA RIGHT COMPARISON: None FINDINGS: Alignment is normal. No tibial or fibular fracture dislocation. Diffuse lower extremity s ubcutaneous edema is noted. Mild tibiotalar degenerative findings. IMPRESSION: No fracture. Report Dictated By: Maricarmen Decker MD at 04/27/2018 5:33 PM Report E-Signed By: Maricarmen Decker MD at 04/27/2018 5:34 PM WSN:[id number]
[2018-04-27 18:24] VITALS: BP 192/120
== END 2018-04-27 18:15 | disposition home or self-care (01) ==
LOC: ER 16:37
DX: S80.11XA Contusion of right lower leg, initial encounter (principal)
CPT/HCPCS: 99283

== ENCOUNTER 2018-04-30 10:03 | Inpatient (IN) | payer MEDICARE, MEDICAID ==
[~2018-04-30] VITALS: Ht 162.6 cm; Wt 106.1 kg
--- NOTE | 2018-04-30 10:02 | ER Report ---
History and Physical Time Seen By MD: 10:02 HPI/ROS CHIEF COMPLAINT: Altered mental status HISTORY OF PRESENT ILLNESS: Patient is a poor historian additional history obtained from the patient's psychologist Dr. Rosario Robin. Patient was refer red to the emergency department for increasing confusion and some increased paranoid thoughts for the past few weeks. Patient had been followed by home health for medication refills. Over the past 2-3 weeks home health has noticed that the patient is making mistakes sometimes taking too much medication sometimes not taking at all, he has also had episodes where he becomes angry at home health aide and so they are discontinuing following him at this time. Patient states that he has a history of depression and prior suicidal attempt 2. Currently not feeling suicidal at this time but states that he is having increased paranoid thoughts. He has a past medical history for type II diabetes, hypertension. Patient was found to be incontinent of stool upon arrival to the emergency department. Patient's primary care provider is Cornell Morrell however because the patient is becoming increasingly noncompliant they did make a referral to Dr. Wild but the patient does not have an appointment currently. REVIEW OF SYSTEMS: Constitutional: No fever, no chills. Eyes: No discharge. ENT: No sore throat. Cardiovascular: No chest pain, no palpitations. Respiratory: No cough, no shortness of breath. Gastrointestinal: No abdominal pain, no vomiting. Genitourinary: No hematuria. Musculoskeletal: No back pain. Skin: No rashes. Neurological: No headache. Psychiatric: Increasing paranoid thoughts Allergies: Coded Allergies: No Known Drug Allergies (Unverified , 04/30/18) Home Meds Active Scripts Metformin Hcl (METFORMIN HCL) 1,000 Mg Tablet, 1 TAB PO BID, #60 TAB 0 Refills Prov:RINKU PALMER NP 02/25/16 Reported Medications Citalopram Hydrobromide (CELEXA) 20 Mg Tablet, 20 MG PO QDAY, #5 TAB 09/17/17 [place]-3 Fatty Acids/Fish Oil (FISH OIL 1,000 MG SOFTGEL) 1 Each Capsule, 1 EACH PO DAILY, CAPSULE 09/17/17 Cholecalciferol (Vitamin D3) (VITAMIN D3) 1,000 Unit Tablet, 3000 UNIT PO DAILY, TAB 09/17/17 Multivitamin (DAILY MULTIPLE VITAMIN) 1 Each Tablet, 1 EACH PO DAILY 09/17/17 Lisinopril (LISINOPRIL) 10 Mg Tablet, 30 MG PO QDAY, TAB 09/13/17 Glipizide (GLIPIZIDE) 5 Mg Tablet, 5 MG PO DAILY 09/13/17 Atorvastatin Calcium (LIPITOR) 40 Mg Tablet, 1 TAB PO QHS, TAB 09/13/17 Past Medical/Surgical History Patient has a past medical history of hypertension, hyperlipidemia, prostate problems, diabetes, depression, suicide attempt 2. Patient has a surgical history of prostatectomy, tonsillectomy. Patient denies any family medical history. Constitutional Vital Sign - Last 24 Hours 04/30/18 04/30/18 04/30/18 04/30/18 10:03 10:06 10:09 10:27 Temp 99.3 Pulse 81 91 Resp 20 14 B/P (MAP) 185/127 185/127 (146) 180/111 (134) Pulse Ox 95 93 O2 Delivery Room Air Room Air 04/30/18 04/30/18 04/30/18 04/30/18 10:30 10:33 10:59 11:04 Temp 97.2 99.8 Pulse 82 81 77 Resp 26 23 11 B/P (MAP) 184/118 (140) Pulse Ox 96 96 O2 Delivery Room Air Room Air 04/30/18 04/30/18 04/30/18 04/30/18 11:30 11:34 11:39 12:00 Temp 99.6 Pulse 82 84 Resp 12 14 B/P (MAP) 154/114 (127) 166/87 (113) Pulse Ox 95 94 O2 Delivery Room Air Room Air 04/30/18 04/30/18 04/30/18 04/30/18 12:09 12:30 12:39 13:09 Temp 99.5 Pulse 82 92 Resp 10 14 B/P (MAP) 179/101 (127) 192/108 (136) Pulse Ox 94 94 O2 Delivery Room Air Room Air 04/30/18 04/30/18 04/30/18 04/30/18 13:14 13:37 13:44 14:17 Temp 99.4 99.3 Pulse 95 89 Resp 31 13 B/P (MAP) 196/126 (149) 182/107 (132) Pulse Ox 90 92 O2 Delivery Room Air Room Air 04/30/18 04/30/18 14:19 14:49 Pulse 93 86 Resp 12 Pulse Ox 92 91 O2 Delivery Room Air Room Air Physical Exam General/Constitutional: Patient is awake, alert, nontoxic and in no acute respiratory distress. Inappropriate laughter; patient is poorly kempt Head: Normocephalic and atraumatic. Eyes: Conjunctival clear, Pupils are equal and reactive to light. Extraocular muscles are intact and symmetrical. Sclera are clear and anicteric. Ears:External canals are clear. Tympanic membranes are clear with normal landmarks and light reflex. Nares: No rhinorrhea or bleeding. Turbinates are pink and moist. Oropharyngeal: Mucous membranes are moist. There is no pharyngeal erythema or exudate. There are no palatal petechiae. Uvula is midline and symmetrical. Neck: Supple, no adenopathy. Cardiovascular: Heart is regular rate and rhythm without audible murmurs, rubs or gallops. Pulmonary: Lungs are clear to auscultation bilaterally. There are no wheezes, rales, or rhonchi. Chest rise is symmetrical Abdomen: Protuberant Soft, nontender, no guarding or peritoneal signs. Extremities: No gross deformities, No peripheral cyanosis. Able to move all 4 extremities. Patient has dried stool to bilateral lower extremities; Right lower extremity weakness; expresive aphasia Neuro: Alert and oriented X3, Cranial nerves 2 thru 12 are intact and symmetrical. Skin: No rashes, skin is warm dry and well perfused. Medical Decision Making Data Points Result Diagram: 04/30/18 1015 04/30/18 1241 Laboratory Hematology Test 04/30/18 10:12 04/30/18 10:15 04/30/18 10:40 04/30/18 12:41 Whole Blood Glucose 314 mg/DL (75-110) Red Blood Count 5.76 M/uL (4.00-5.60) Mean Corpuscular Volume 83.0 fL (80.0-96.0) Mean Corpuscular Hemoglobin 28.6 pg (26.0-33.0) Mean Corpuscular Hemoglobin Concent 34.4 g/dL (32.0-36.0) Red Cell Distribution Width 14.8 % (11.5-14.5) Mean Platelet Volume 9.3 fL (7.2-11.1) Neutrophils (%) (Auto) 62.7 % (39.4-72.5) Lymphocytes (%) (Auto) 26.3 % (17.6-49.6) Monocytes (%) (Auto) 8.0 % (4.1-12.4) Eosinophils (%) (Auto) 1.5 % (0.4-6.7) Basophils (%) (Auto) 1.5 % (0.3-1.4) Nucleated RBC Relative Count (auto) 0.1 /100WBC Neutrophils # (Auto) 4.9 K/uL (2.0-7.4) Lymphocytes # (Auto) 2.1 K/uL (1.3-3.6) Monocytes # (Auto) 0.6 K/uL (0.3-1.0) Eosinophils # (Auto) 0.1 K/uL (0.0-0.5) Basophils # (Auto) 0.1 K/uL (0.0-0.1) Nucleated RBC Absolute Count (auto) 0.01 K/uL Peripheral Blood Smear Yes Y/N Carboxyhemoglobin 4.6 % (< 5.0) Hemoglobin A1c 10.1 % (4.6-6.0) Magnesium Level 1.9 mg/dl (1.7-2.2) Total Bilirubin 1.1 mg/dl (0.2-1.3) Aspartate Amino Transf (AST/SGOT) 36 U/L (0-35) Alanine Aminotransferase (ALT/SGPT) 40 U/L (0-56) Alkaline Phosphatase 92 U/L (0-126) Ammonia < 9 UMOL/L (9-33) Total Creatine Kinase 89 U/L (55-170) Total Protein 6.9 g/dl (6.3-8.2) Albumin 3.6 g/dl (3.5-5.0) Thyroid Stimulating Hormone (TSH) 2.21 uIU/ml (0.46-4.68) Serum Alcohol < 10 mg/dl Urine Color Yellow Urine Clarity Clear Urine pH 5.0 pH (4.8-9.5) Urine Specific [place] 1.028 Urine Protein 500 mg/dL (NEGATIVE) Urine Glucose (UA) 500 mg/dL (NEGATIVE) Urine Ketones Trace mg/dL (NEGATIVE) Urine Blood Negative (NEGATIVE) Urine Nitrite Negative (NEGATIVE) Urine Bilirubin Negative (NEGATIVE) Urine Urobilinogen 2.0 mg/dL (0.2-1.9) Urine Leukocyte Esterase Negative (NEGATIVE) Urine RBC 1 /HPF (0-2/HPF) Urine WBC 3 /HPF (0-5/HPF) Urine Squamous Epithelial Cells Many /LPF (NONE-FEW) Urine Bacteria Negative /HPF (NONE-FEW) Urine Hyaline Casts Few /LPF (NONE-FEW) Urine Mucus Few /HPF (NONE-FEW) Urine Opiates Screen Negative Urine Barbiturates Screen Negative Ur Tricyclic Antidepressants Screen Negative Urine Phencyclidine Screen Negative Urine Amphetamines Screen Negative Urine Benzodiazepines Screen Negative Urine Cocaine Screen Negative Urine Cannabinoids Screen Negative Sodium Level 134 mmol/L (137-145) Potassium Level 3.1 mmol/L (3.5-5.0) Chloride Level 99 mmol/L (98-107) Carbon Dioxide Level 20 mmol/L (22-30) Blood Urea Nitrogen 16 mg/dl (9-21) Creatinine 1.00 mg/dl (0.66-1.25) Glomerular Filtration Rate Calc > 60.0 Random Glucose 311 mg/dl (75-110) Lactate 4.5 mmol/L (0.7-2.1) Calcium Level 8.3 mg/dl (8.4-10.2) Troponin I 0.037 ng/ml Chemistry Test 04/30/18 10:12 04/30/18 10:15 04/30/18 10:40 04/30/18 12:41 Whole Blood Glucose 314 mg/DL (75-110) White Blood Count 7.8 k/uL (4.5-11.0) Red Blood Count 5.76 M/uL (4.00-5.60) Hemoglobin 16.5 g/dL (14.0-18.0) Hematocrit 47.8 % (42.0-52.0) Mean Corpuscular Volume 83.0 fL (80.0-96.0) Mean Corpuscular Hemoglobin 28.6 pg (26.0-33.0) Mean Corpuscular Hemoglobin Concent 34.4 g/dL (32.0-36.0) Red Cell Distribution Width 14.8 % (11.5-14.5) Platelet Count 267 K/uL (150-450) Mean Platelet Volume 9.3 fL (7.2-11.1) Neutrophils (%) (Auto) 62.7 % (39.4-72.5) Lymphocytes (%) (Auto) 26.3 % (17.6-49.6) Monocytes (%) (Auto) 8.0 % (4.1-12.4) Eosinophils (%) (Auto) 1.5 % (0.4-6.7) Basophils (%) (Auto) 1.5 % (0.3-1.4) Nucleated RBC Relative Count (auto) 0.1 /100WBC Neutrophils # (Auto) 4.9 K/uL (2.0-7.4) Lymphocytes # (Auto) 2.1 K/uL (1.3-3.6) Monocytes # (Auto) 0.6 K/uL (0.3-1.0) Eosinophils # (Auto) 0.1 K/uL (0.0-0.5) Basophils # (Auto) 0.1 K/uL (0.0-0.1) Nucleated RBC Absolute Count (auto) 0.01 K/uL Peripheral Blood Smear Yes Y/N Carboxyhemoglobin 4.6 % (< 5.0) Hemoglobin A1c 10.1 % (4.6-6.0) Magnesium Level 1.9 mg/dl (1.7-2.2) Total Bilirubin 1.1 mg/dl (0.2-1.3) Aspartate Amino Transf (AST/SGOT) 36 U/L (0-35) Alanine Aminotransferase (ALT/SGPT) 40 U/L (0-56) Alkaline Phosphatase 92 U/L (0-126) Ammonia < 9 UMOL/L (9-33) Total Creatine Kinase 89 U/L (55-170) Total Protein 6.9 g/dl (6.3-8.2) Albumin 3.6 g/dl (3.5-5.0) Thyroid Stimulating Hormone (TSH) 2.21 uIU/ml (0.46-4.68) Serum Alcohol < 10 mg/dl Urine Color Yellow Urine Clarity Clear Urine pH 5.0 pH (4.8-9.5) Urine Specific [place] 1.028 Urine Protein 500 mg/dL (NEGATIVE) Urine Glucose (UA) 500 mg/dL (NEGATIVE) Urine Ketones Trace mg/dL (NEGATIVE) Urine Blood Negative (NEGATIVE) Urine Nitrite Negative (NEGATIVE) Urine Bilirubin Negative (NEGATIVE) Urine Urobilinogen 2.0 mg/dL (0.2-1.9) Urine Leukocyte Esterase Negative (NEGATIVE) Urine RBC 1 /HPF (0-2/HPF) Urine WBC 3 /HPF (0-5/HPF) Urine Squamous Epithelial Cells Many /LPF (NONE-FEW) Urine Bacteria Negative /HPF (NONE-FEW) Urine Hyaline Casts Few /LPF (NONE-FEW) Urine Mucus Few /HPF (NONE-FEW) Urine Opiates Screen Negative Urine Barbiturates Screen Negative Ur Tricyclic Antidepressants Screen Negative Urine Phencyclidine Screen Negative Urine Amphetamines Screen Negative Urine Benzodiazepines Screen Negative Urine Cocaine Screen Negative Urine Cannabinoids Screen Negative Glomerular Filtration Rate Calc > 60.0 Lactate 4.5 mmol/L (0.7-2.1) Calcium Level 8.3 mg/dl (8.4-10.2) Troponin I 0.037 ng/ml Toxicology Test 04/30/18 10:15 04/30/18 10:40 Serum Alcohol < 10 mg/dl Urine Opiates Screen Negative Urine Barbiturates Screen Negative Ur Tricyclic Antidepressants Screen Negative Urine Phencyclidine Screen Negative Urine Amphetamines Screen Negative Urine Benzodiazepines Screen Negative Urine Cocaine Screen Negative Urine Cannabinoids Screen Negative Urinalysis Test 04/30/18 10:40 Urine Color Yellow Urine Clarity Clear Urine pH 5.0 pH (4.8-9.5) Urine Specific [place] 1.028 Urine Protein 500 mg/dL (NEGATIVE) Urine Glucose (UA) 500 mg/dL (NEGATIVE) Urine Ketones Trace mg/dL (NEGATIVE) Urine Blood Negative (NEGATIVE) Urine Nitrite Negative (NEGATIVE) Urine Bilirubin Negative (NEGATIVE) Urine Urobilinogen 2.0 mg/dL (0.2-1.9) Urine Leukocyte Esterase Negative (NEGATIVE) Urine RBC 1 /HPF (0-2/HPF) Urine WBC 3 /HPF (0-5/HPF) Urine Squamous Epithelial Cells Many /LPF (NONE-FEW) Urine Bacteria Negative /HPF (NONE-FEW) Urine Hyaline Casts Few /LPF (NONE-FEW) Urine Mucus Few /HPF (NONE-FEW) EKG/Imaging EKG Interpretation EKG shows sinus rhythm with left axis deviation and right bundle branch block there are T-wave inversions in V4 through V6 along with the 3. EKG from March 2016 was used for comparison. There was significant change in EKG and that there is now a new right bundle branch block along with a left axis deviation. There did appear to be T-wave inversions in leads V5 and V6 and lead 3. Monitor Interpretation: Normal Sinus Rhythm Imaging FACILITY: [facility] PATIENT NAME: Fito Lane : 1950 MR: [id number] V: [id number] EXAM DATE: ORDERING PHYSICIAN: ROHITH GAMBOA TECHNOLOGIST: Location: [facility] Patient: Fito Lane : 1950 Visit/Account:[id number] Date of Sevice: 04/30/2018 CT Head without contrast Indication: Altered mental status Comparison: None available Technique: Axial CT images were obtained through the brain from the skull base to the vertex without administration of IV contrast. Reformatted coronal and sagittal images were also obtained. One of the following dose optimization techniques was utilized in the performance of this exam: Automated exposure control; adjustment of the mA and/or kV according to the patient's size; or use of an iterative reconstruction technique. Specific details can be referenced in the facility's radiology CT exam operational policy.. Findings: There is a large left frontal region of cortical hypoattenuation with edema and loss of the normal sulci indicative of a left MCA subacute infarct. Otherwise, the ventricular system is within normal limits. Mild regions of periventricular and subcortical hypoattenuation speak to chronic small vessel occlusive disease. There is no evidence of an intracranial mass, mass effect, midline shift, abnormal extra-axial fluid collection or intraparenchymal hemorrhage. The calvarium is intact with well pneumatized mastoid air cells and paranasal sinuses. IMPRESSION: 1. Large, subacute left frontal infarct Results were called to Dr. ROHITH GAMBOA at 04/30/2018 11:39 AM. Report Dictated By: Roger Pool MD at 04/30/2018 11:34 AM Report E-Signed By: Roger Pool MD at 04/30/2018 11:40 AM WSN:[email or web address] FACILITY: [facility] PATIENT NAME: Fito Lane : 1950 MR: [id number] V: [id number] EXAM DATE: ORDERING PHYSICIAN: ROHITH GAMBOA TECHNOLOGIST: Location: [facility] Patient: Fito Lane : 1950 Visit/Account:[id number] Date of Sevice: 04/30/2018 Single view of the chest Indication: Altered mental status. Comparison: X-ray examination the chest April 11, 2016 Findings: Patient is rotated to the right. The heart is enlarged without current failure, new infiltrate, effusion or pneumothorax. No acute bony finding. IMPRESSION: 1. Cardiomegaly without acute finding Report Dictated By: Roger Pool MD at 04/30/2018 11:40 AM Report E-Signed By: Roger Pool MD at 04/30/2018 11:40 AM WSN:[email or web address] FACILITY: [facility] PATIENT NAME: Fito Lane : 1950 MR: [id number] V: [id number] EXAM DATE: ORDERING PHYSICIAN: ROHITH GAMBOA TECHNOLOGIST: Location: [facility] Patient: Fito Lane : 1950 Visit/Account:[id number] Date of Sevice: 04/30/2018 EXAMINATION: CTA of the Neck with IV contrast CTA of the Head with IV contrast HISTORY: Left frontal CVA. COMPARISON: Noncontrast head CT from the same day. TECHNIQUE: Overlapping thin sections were obtained during a bolus of IV contrast from the aortic arch through the vertex. Reconstruction of the source data set includes multiplanar 2D in the sagittal and coronal planes, and 3D coronal thin slab MIP series. P[employer] Operator images have been stored on PACS. Stenosis of the internal carotid arteries are calculated using NASCET criteria. CONTRAST: 75 mL of IV [id number] One of the following dose optimization techniques was utilized in the performance of this exam: Automated exposure control; adjustment of the mA and/or kV according to the patient's size; or use of an iterative reconstruction technique. Specific details can be referenced in the facility's radiology CT exam operational policy. FINDINGS: Aortic arch and great vessels: Mild calcified plaque at the aortic arch. Coronary artery calcifications. Mild plaque at the origin of the left subclavian artery without flow-limiting stenosis. Right CCA/ICA: 0% stenosis of the origin of the right ICA. Aneurysm of the mid cervical right ICA measuring 1.4 x 1.1 cm in axial dimensions by 2.3 cm in length. Fusiform ectasia of the distal cervical right ICA measuring 7.5 mm in diameter. Left CCA/ICA: Mild plaque at the left carotid bulb without stenosis. 0% stenosis of the origin of the left ICA. Irregular aneurysmal dilation of the distal cervical left ICA, measuring up to 1 cm in diameter. Vertebrobasilar: Patent. Mild ectasia of the intracranial vertebral arteries and basilar artery. [place]: Posterior communicating arteries are hypoplastic or absent. Anterior communicating artery is unremarkable. GABBY circulation: A moderate or severe focal stenosis in the left pericallosal artery. MCA circulation: Relatively diminished caliber of the distal left MCA branches within the old infarct in the left frontal lobe. No evidence of acute arterial occlusion. DIRECTOR HEART circulation: Severe focal stenosis in the proximal P2 segment of the right posterior cerebral artery. Additional non-angiographic findings: Advanced disc degenerative changes at C5-6. Cyst or nodule along the posterior surface of the anterior hyoid bone measuring 2.4 x 2.1 x 1.6 cm. IMPRESSION: No evidence of acute arterial occlusion in the head or neck. Relatively diminished caliber of the arterial branches within the old left MCA territory infarct in the left frontal lobe. 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 Moderate or severe focal stenosis of the left pericallosal artery. Severe focal stenosis of the proximal P2 segment of the right posterior cerebral artery. Cyst or nodule along the posterior surface of the hyoid bone measuring 2.4 x 2.1 x 1.6 cm. 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 Report Dictated By: Florin Ojeda MD at 04/30/2018 2:01 PM Report E-Signed By: Florin Ojeda MD at 04/30/2018 2:36 PM WSN:[id number] ED Course/Re-evaluation Clinical Indication for ER IV: IV Access ED Course 04/30/2018 10:27:11 am patient with altered mental status failure to thrive at home. Plan will be medical workup at this time. 04/30/2018 11:52:[address] scan shows a large subacute left frontal infarction that involved the left MCA. 04/30/2018 11:59:14 am spoke with who is neurologist from [facility]. She would like us to obtain a CTA of the head and neck and pushed those images to her. The patient would not have any way to specifically get over to [facility] for follow-up in 24 hours. And patient himself is unwilling at this time to go to [place]. Dr. Mancini did state that she might be able to review the images and give guidance in terms of workup here in [place]. 04/30/2018 2:52:56 pm the CTA is returned. There is some concern about diminished caliber of the arteries around the old left MCA territory infarct in the left frontal lobe. There is also some aneurysms of the cervical segment of both internal carotid arteries there is also severe focal stenosis of the proximal P2 segment of the right posterior cerebral artery. I did speak with the patient again name waiting to hear back from Dr. Mancini who is currently with a patient to discuss definitive management review of the CTA. Patient still is hesitant about being transferred to [facility]. I stated we will await until we have talked to the neurologist to discuss what would be best. Decision to Disposition Date: Apr 30, 2018 Decision to Disposition Time: 15:13 Depart Departure Latest Vital Signs Vital Signs Date Time Temp Pulse Resp B/P (MAP) Pulse Ox O2 Delivery O2 Flow Rate FiO2 04/30/18 14:49 86 12 91 Room Air 04/30/18 14:17 182/107 (132) 04/30/18 13:44 99.3 Impression: Primary Impression: CVA (cerebral vascular accident) Additional Impression: Metabolic acidemia Condition: Condition Unchanged Disposition: Admitted from ER (to Dr Ca Zelaya) Problem Qualifiers Primary Impression: CVA (cerebral vascular accident) CVA mechanism: unspecified Qualified Codes: I63.9 - Cerebral infarction, unspecified ROHITH GAMBOA MD Apr 30, 2018 10:02
[~2018-04-30 10:03] MED LIST changes: -ASPI-757 PO; -HYDR-2966 PO; -INSU100I30 SUBQ; -INSU100V24 SUBQ; -LISI20TA29 PO; -TAMS0.4C70 PO
[2018-04-30] MEDS ORDERED: NS(*) 0.9% 1000 ML BAG 1,000 ML IV ONE ×2 (10:06→11:25)
[2018-04-30] MEDS ORDERED: THIAMINE HCL 200 MG/2 ML INJ IVP ONE (10:10)
--- NOTE | 2018-04-30 10:26 | EKG ---
FACILITY: [facility] PATIENT NAME: CURTIS GALLEGOS : [id number] MR: [id number] V: [id number] EXAM DATE: ORDERING PHYSICIAN: ROHITH GAMBOA TECHNOLOGIST: EMMA Sandoval Reason : NEURO Blood Pressure : / mmHG Vent. Rate : 080 BPM Atrial Rate : 080 BPM P-R Int : 130 ms QRS Dur : 122 ms QT Int : 422 ms P-R-T Axes : 038 -32 004 degrees QTc Int : 486 ms Sinus rhythm Left axis deviation Right bundle branch block T wave inversion through precordial leads Abnormal ECG Confirmed by LUIS DUENAS ([id number]) on 04/30/2018 3:40:37 PM Referred By: COOPER Confirmed By:LUIS DUENAS
[2018-04-30 10:32] LABS: PLATELET COUNT, AUTOMATED 267 K/uL (150-450)
--- NOTE | 2018-04-30 11:43 | RADIOLOGY IMAGING REPORT ---
FACILITY: [facility] PATIENT NAME: Fito Lane : 1950 MR: [id number] V: [id number] EXAM DATE: ORDERING PHYSICIAN: ROHITH GAMBOA TECHNOLOGIST: Location: [facility] Patient: Fito Lane : 1950 Visit/Account:[id number] Date of Sevice: 04/30/2018 CT Head without contrast Indication: Altered mental status Comparison: None available Technique: Axial CT images were obtained through the brain from the skull base to the vertex without administration of IV contrast. Reformatted coronal and sagittal images were also obtained. One of the following dose optimization techniques was utilized in the performance of this exam: Automated ex posure control; adjustment of the mA and/or kV according to the patient's size; or use of an iterativ e reconstruction technique. Specific details can be referenced in the facility's radiology CT exam operational policy.. Findings: There is a large left frontal region of cortical hypoattenuation with edema and loss of the normal bond lci indicative of a left MCA subacute infarct. Otherwise, the ventricular system is within normal li mits. Mild regions of periventricular and subcortical hypoattenuation speak to chronic small vessel occlusive disease. There is no evidence of an intracranial mass, mass effect, midline shift, abnormal extra-axial fluid collection or intraparenchymal hemorrhage. The calvarium is intact with well pneumatized mastoid air cells and paranasal sinuses. IMPRESSION: 1. Large, subacute left frontal infarct Results were called to Dr. ROHITH GAMBOA at 04/30/2018 11:39 AM. Report Dictated By: Roger Pool MD at 04/30/2018 11:34 AM Report E-Signed By: Roger Pool MD at 04/30/2018 11:40 AM WSN:[email or web address]
--- NOTE | 2018-04-30 11:44 | RADIOLOGY IMAGING REPORT ---
FACILITY: [facility] PATIENT NAME: Fito Lane : 1950 MR: [id number] V: [id number] EXAM DATE: ORDERING PHYSICIAN: ROHITH GAMBOA TECHNOLOGIST: Location: [facility] [place] Patient: Fito Lane : 1950 Visit/Account:[id number] Date of Sevice: 04/30/2018 Single view of the chest Indication: Altered mental status. Comparison: X-ray examination the chest April 11, 2016 Findings: Patient is rotated to the right. The heart is enlarged without current failure, new infiltrate, effu danii or pneumothorax. No acute bony finding. IMPRESSION: 1. Cardiomegaly without acute finding Report Dictated By: Roger Pool MD at 04/30/2018 11:40 AM Report E-Signed By: Roger Pool MD at 04/30/2018 11:40 AM WSN:[email or web address]
[2018-04-30] MEDS ORDERED: INSU HUM REG 100 U/ML(ER ONLY) 10 ML VIAL IV ONE ×2 (13:10→13:15)
[2018-04-30] MEDS ORDERED: NS(*) 0.9% 50 ML BAG 50 ML ONE (13:33)
[2018-04-30] MEDS ORDERED: IOPAMIDOL 76% 75 ML INFUS BTL 75 ML ONE (13:33)
--- NOTE | 2018-04-30 14:40 | RADIOLOGY IMAGING REPORT ---
FACILITY: [facility] [place] PATIENT NAME: Fito Lane : 1950 MR: [id number] V: [id number] EXAM DATE: ORDERING PHYSICIAN: ROHITH GAMBOA TECHNOLOGIST: Location: [facility] Patient: Fito Lane : 1950 Visit/Account:[id number] Date of Sevice: 04/30/2018 EXAMINATION: CTA of the Neck with IV contrast CTA of the Head with IV contrast HISTORY: Left frontal CVA. COMPARISON: Noncontrast head CT from the same day. TECHNIQUE: Overlapping thin sections were obtained during a bolus of IV contrast from the aortic ar ch through the vertex. Reconstruction of the source data set includes multiplanar 2D in the sagittal and coronal planes, and 3D coronal thin slab MIP series. Social Worker Aide images have been stored on PA CS. Stenosis of the internal carotid arteries are calculated using NASCET criteria. CONTRAST: 75 mL of IV Isovue-370 One of the following dose optimization techniques was utilized in the performance of this exam: Autom ated exposure control; adjustment of the mA and/or kV according to the patient's size; or use of an i terative reconstruction technique. Specific details can be referenced in the facility's radiology C T exam operational policy. FINDINGS: Aortic arch and great vessels: Mild calcified plaque at the aortic arch. Coronary artery calcificat ions. Mild plaque at the origin of the left subclavian artery without flow-limiting stenosis. Right CCA/ICA: 0% stenosis of the origin of the right ICA. Aneurysm of the mid cervical right ICA m easuring 1.4 x 1.1 cm in axial dimensions by 2.3 cm in length. Fusiform ectasia of the distal cervica l right ICA measuring 7.5 mm in diameter. Left CCA/ICA: Mild plaque at the left carotid bulb without stenosis. 0% stenosis of the origin of t he left ICA. Irregular aneurysmal dilation of the distal cervical left ICA, measuring up to 1 cm in d iameter. Vertebrobasilar: Patent. Mild ectasia of the intracranial vertebral arteries and basilar artery. [place]: Posterior communicating arteries are hypoplastic or absent. Anterior communicatin g artery is unremarkable. GABBY circulation: A moderate or severe focal stenosis in the left pericallosal artery. MCA circulation: Relatively diminished caliber of the distal left MCA branches within the old infar ct in the left frontal lobe. No evidence of acute arterial occlusion. FEDERAL AID COORDINATOR circulation: Severe focal stenosis in the proximal P2 segment of the right posterior cerebral a rtery. Additional non-angiographic findings: Advanced disc degenerative changes at C5-6. Cyst or nodule along the posterior surface of the anterio r hyoid bone measuring 2.4 x 2.1 x 1.6 cm. IMPRESSION: No evidence of acute arterial occlusion in the head or neck. Relatively diminished caliber of the arterial branches within the old left MCA territory infarct in t he left frontal lobe. 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 Moderate or severe focal stenosis of the left pericallosal artery. Severe focal stenosis of the proximal P2 segment of the right posterior cerebral artery. Cyst or nodule along the posterior surface of the hyoid bone measuring 2.4 x 2.1 x 1.6 cm. 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 Report Dictated By: Florin Ojeda MD at 04/30/2018 2:01 PM Report E-Signed By: Florin Ojeda MD at 04/30/2018 2:36 PM WSN:[id number]
--- NOTE | 2018-04-30 14:40 | RADIOLOGY IMAGING REPORT ---
FACILITY: [facility] PATIENT NAME: Fito Lane : 1950 MR: [id number] V: [id number] EXAM DATE: ORDERING PHYSICIAN: ROHITH GAMBOA TECHNOLOGIST: Location: [facility] [place] Patient: Fito Lane : 1950 Visit/Account:[id number] Date of Sevice: 04/30/2018 EXAMINATION: CTA of the Neck with IV contrast CTA of the Head with IV contrast HISTORY: Left frontal CVA. COMPARISON: Noncontrast head CT from the same day. TECHNIQUE: Overlapping thin sections were obtained during a bolus of IV contrast from the aortic ar ch through the vertex. Reconstruction of the source data set includes multiplanar 2D in the sagittal and coronal planes, and 3D coronal thin slab MIP series. Executive Director Of Marketing images have been stored on PA CS. Stenosis of the internal carotid arteries are calculated using NASCET criteria. CONTRAST: 75 mL of IV Isovue-370 One of the following dose optimization techniques was utilized in the performance of this exam: Autom ated exposure control; adjustment of the mA and/or kV according to the patient's size; or use of an i terative reconstruction technique. Specific details can be referenced in the facility's radiology C T exam operational policy. FINDINGS: Aortic arch and great vessels: Mild calcified plaque at the aortic arch. Coronary artery calcificat ions. Mild plaque at the origin of the left subclavian artery without flow-limiting stenosis. Right CCA/ICA: 0% stenosis of the origin of the right ICA. Aneurysm of the mid cervical right ICA m easuring 1.4 x 1.1 cm in axial dimensions by 2.3 cm in length. Fusiform ectasia of the distal cervica l right ICA measuring 7.5 mm in diameter. Left CCA/ICA: Mild plaque at the left carotid bulb without stenosis. 0% stenosis of the origin of t he left ICA. Irregular aneurysmal dilation of the distal cervical left ICA, measuring up to 1 cm in d iameter. Vertebrobasilar: Patent. Mild ectasia of the intracranial vertebral arteries and basilar artery. [place] of [place]: Posterior communicating arteries are hypoplastic or absent. Anterior communicatin g artery is unremarkable. GABBY circulation: A moderate or severe focal stenosis in the left pericallosal artery. MCA circulation: Relatively diminished caliber of the distal left MCA branches within the old infar ct in the left frontal lobe. No evidence of acute arterial occlusion. [employer] circulation: Severe focal stenosis in the proximal P2 segment of the right posterior cerebral a rtery. Additional non-angiographic findings: Advanced disc degenerative changes at C5-6. Cyst or nodule along the posterior surface of the anterio r hyoid bone measuring 2.4 x 2.1 x 1.6 cm. IMPRESSION: No evidence of acute arterial occlusion in the head or neck. Relatively diminished caliber of the arterial branches within the old left MCA territory infarct in t he left frontal lobe. 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 Moderate or severe focal stenosis of the left pericallosal artery. Severe focal stenosis of the proximal P2 segment of the right posterior cerebral artery. Cyst or nodule along the posterior surface of the hyoid bone measuring 2.4 x 2.1 x 1.6 cm. 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 Report Dictated By: Florin Ojeda MD at 04/30/2018 2:01 PM Report E-Signed By: Florin Ojeda MD at 04/30/2018 2:36 PM WSN:[id number]
[2018-04-30 15:50] VITALS: BP 183/136
[2018-04-30] MEDS ORDERED: NS(*) 0.9% 1000 ML BAG 1,000 ML IV PRN (16:06)
[2018-04-30 16:10] VITALS: BP 192/105
[2018-04-30] MEDS ORDERED: FLUSH 10 ML SYR IVP PRN (16:10)
--- NOTE | 2018-04-30 16:22 | History & Physical ---
History of Present Illness Chief Complaint "I can't make it to the bathroom" History of Present Illness 67yo male with PMHx significant for type 2 DM, HTN, depression. He reports increasing difficulty making it to the bathroom to urinate/defecate. He denies dysuria/hematuria/fevers/chills/N/V/diarrhea. He has a history of TURP and currently has a Crump cath in place. He has also been reporting some pain/difficulty with RLE. 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 He was seen in the ER a few days ago and had x-rays done, which did not show any specific abnormalities. He denies any specific weakness/numbness/tingling. He has been receiving some help at home through [facility] nursing. It is reported he has been taking his medications erratically. His psychologist reported he had been more confused at their appointments as well. He was evaluated in the ER and found to have metabolic/lactic acidosis in addition to large subacute CVA involving left frontal lobe. He was recommended for admission. History Problems: (1) S/P TURP Status: Resolved (2) History of urinary retention Status: Chronic (3) Enlarged prostate Status: Chronic (4) Crump catheter in place Status: Chronic (5) Hyperglycemia due to type 2 diabetes mellitus Status: Acute (6) Neurocognitive disorder Status: Chronic (7) Elevated PSA Status: Chronic (8) Chronic major depressive disorder Status: Chronic (9) Hypertension Status: Chronic (10) Elevated cholesterol Onset Date: 01/12/2015 Status: Chronic (11) Obesity (BMI 30-39.9) Status: Chronic Home Meds Active Scripts Metformin Hcl (METFORMIN HCL) 1,000 Mg Tablet, 1 TAB PO BID, #60 TAB 0 Refills Prov:RINKU PALMER Ca [place] 02/25/16 Reported Medications Citalopram Hydrobromide (CELEXA) 20 Mg Tablet, 20 MG PO QDAY, #5 TAB 09/17/17 [place]-3 Fatty Acids/Fish Oil (FISH OIL 1,000 MG SOFTGEL) 1 Each Capsule, 1 EACH PO DAILY, CAPSULE 09/17/17 Cholecalciferol (Vitamin D3) (VITAMIN D3) 1,000 Unit Tablet, 3000 UNIT PO DAILY, TAB 09/17/17 Multivitamin (DAILY MULTIPLE VITAMIN) 1 Each Tablet, 1 EACH PO DAILY 09/17/17 Lisinopril (LISINOPRIL) 10 Mg Tablet, 30 MG PO QDAY, TAB 09/13/17 Glipizide (GLIPIZIDE) 5 Mg Tablet, 5 MG PO DAILY 09/13/17 Atorvastatin Calcium (LIPITOR) 40 Mg Tablet, 1 TAB PO QHS, TAB 09/13/17 Allergies: Coded Allergies: No Known Drug Allergies (Unverified , 04/30/18) Other Social/Family Hx He is and currently lives alone in an apartment [place]. Hx Smoking: No Smoking Status: Never Smoker Exposure to Second Hand Smoke?: No Caffeine Intake: Coffee Caffeine/Cups Per Day: 1 TO 2 CUPS PER DAY Hx Alcohol Use: No (says he hasn't drank in 30 years) Hx Substance Use Disorder: No Social Drug Use: Never Review of Systems Constitutional: No Fever, No Chills, No Night Sweats Neurological: Confusion, Weakness; No Syncope Eyes: No Vision Change, No Loss of Vision ENT: No Hearing Loss Cardiovascular: No Chest Pain, No Palpitations Respiratory: No Shortness of Breath, No Cough, No Wheezing Gastrointestinal: No Nausea, No Vomiting, No Diarrhea, No Hematemesis, No Hemat ochezia, No Melena, No Abdominal Pain Genitourinary: Urinary Incontinence; No Dysuria, No Hematuria Musculoskeletal: Impaired Mobility; No Pain Psychiatric: Depression Exam Vital Signs Vital Signs Date Time Temp Pulse Resp B/P (MAP) Pulse Ox O2 Delivery O2 Flow Rate FiO2 04/30/18 16:10 98.6 85 22 192/105 (134) 91 Room Air General Appearance: Alert, Awake, Other (he is almost overly talkative and makes unusual statements frequently) Neuro: Other (He does have some mild focal weakness in RLE at plantar and dorsiflexion right foot/DTRs 2/4 bilaterally in biceps/patellar/Achilles) Eyes: Other (right pupil is just slightly larger than left/both are reactive to light/EOM intact) ENT: Oropharynx Clear, Other (tongue and uvula midline) Neck: No Masses, Other (no bruits noted) Cardiovascular: Regular Rate and Rhythm (no murmur noted), No Edema, No JVD Respiratory: Clear to Auscultation Chest: No Tenderness GI: Abd Soft and Non-Tender : No CVA Tenderness Lymph: No Adenopathy Extremities: Warm, Perfused Integumentary: Skin Intact without Lesion / Mass Psych: Other (He is oriented to person/place/partially to time) Medical Decision Making Data Points Result Diagram: 04/30/18 1015 04/30/18 1241 Item Value Date Time Troponin I 0.037 ng/ml 04/30/18 1241 Lactate 4.5 mmol/L *H 04/30/18 1241 Lactate 3.6 mmol/L *H 04/30/18 1015 Thyroid Stimulating Hormone (TSH) 2.21 uIU/ml 04/30/18 1015 Albumin 3.6 g/dl 04/30/18 1015 Total Protein 6.9 g/dl 04/30/18 1015 Troponin I 0.035 ng/ml 04/30/18 1015 Ammonia < 9 UMOL/L L 04/30/18 1015 Alkaline Phosphatase 92 U/L 04/30/18 1015 Alanine Aminotransferase (ALT/SGPT) 40 U/L 04/30/18 1015 Aspartate Amino Transf (AST/SGOT) 36 U/L H 04/30/18 1015 Total Bilirubin 1.1 mg/dl 04/30/18 1015 Calcium Level 8.8 mg/dl 04/30/18 1015 Magnesium Level 1.9 mg/dl 04/30/18 1015 Total Creatine Kinase 89 U/L 04/30/18 1015 Hemoglobin A1c 10.1 % H 04/30/18 1015 Carboxyhemoglobin 4.6 % 04/30/18 1015 Urine Mucus Few /HPF 04/30/18 1040 Urine Hyaline Casts Few /LPF 04/30/18 1040 Urine Bacteria Negative /HPF 04/30/18 1040 Urine Squamous Epithelial Cells Many /LPF H 04/30/18 1040 Urine WBC 3 /HPF 04/30/18 1040 Urine RBC 1 /HPF 04/30/18 1040 Urine Leukocyte Esterase Negative 04/30/18 1040 Urine Urobilinogen 2.0 mg/dL 04/30/18 1040 Urine Bilirubin Negative 04/30/18 1040 Urine Nitrite Negative 04/30/18 1040 Urine Blood Negative 04/30/18 1040 Urine Ketones Trace mg/dL 04/30/18 1040 Urine Glucose (UA) 500 mg/dL 04/30/18 1040 Urine Protein 500 mg/dL 04/30/18 1040 Urine Specific [place] 1.028 04/30/18 1040 Urine pH 5.0 pH 04/30/18 1040 Urine Clarity Clear 04/30/18 1040 Urine Color Yellow 04/30/18 1040 EKG / Imaging Imaging PATIENT NAME: Fito Lane : 1950 MR: [id number] V: [id number] EXAM DATE: ORDERING PHYSICIAN: ROHITH GAMBOA TECHNOLOGIST: Location: [facility] [place] Patient: Fito Lane : 1950 Visit/Account:[id number] Date of Sevice: 04/30/2018 CT Head without contrast Indication: Altered mental status Comparison: None available Technique: Axial CT images were obtained through the brain from the skull base to the vertex without administration of IV contrast. Reformatted coronal and sagittal images were also obtained. One of the following dose optimization techniques was utilized in the performance of this exam: Automated exposure control; adjustment of the mA and/or kV according to the patient's size; or use of an iterative reconstruction technique. Specific details can be referenced in the facility's radiology CT exam operational policy.. Findings: There is a large left frontal region of cortical hypoattenuation with edema and loss of the normal sulci indicative of a left MCA subacute infarct. Otherwise, the ventricular system is within normal limits. Mild regions of periventricular and subcortical hypoattenuation speak to chronic small vessel occlusive disease. There is no evidence of an intracranial mass, mass effect, midline shift, abnormal extra-axial fluid collection or intraparenchymal hemorrhage. The calvarium is intact with well pneumatized mastoid air cells and paranasal sinuses. IMPRESSION: 1. Large, subacute left frontal infarct Results were called to Dr. ROHITH GAMBOA at 04/30/2018 11:39 AM. Report Dictated By: Roger Pool MD at 04/30/2018 11:34 AM Report E-Signed By: Roger Pool MD at 04/30/2018 11:40 AM WSN:[email or web address] PATIENT NAME: Fito Lane : 1950 MR: [id number] V: [id number] EXAM DATE: ORDERING PHYSICIAN: ROHITH GAMBOA TECHNOLOGIST: Location: [facility] [place] Patient: Fito Lane : 1950 Visit/Account:[id number] Date of Sevice: 04/30/2018 Single view of the chest Indication: Altered mental status. Comparison: X-ray examination the chest April 11, 2016 Findings: Patient is rotated to the right. The heart is enlarged without current failure, new infiltrate, effusion or pneumothorax. No acute bony finding. IMPRESSION: 1. Cardiomegaly without acute finding Report Dictated By: Roger Pool MD at 04/30/2018 11:40 AM Report E-Signed By: Roger Pool MD at 04/30/2018 11:40 AM WSN:[email or web address] PATIENT NAME: Fito Lane : 1950 MR: [id number] V: [id number] EXAM DATE: ORDERING PHYSICIAN: ROHITH GAMBOA TECHNOLOGIST: Location: [facility] [place] Patient: Fito Lane : 1950 Visit/Account:[id number] Date of Sevice: 04/30/2018 EXAMINATION: CTA of the Neck with IV contrast CTA of the Head with IV contrast HISTORY: Left frontal CVA. COMPARISON: Noncontrast head CT from the same day. TECHNIQUE: Overlapping thin sections were obtained during a bolus of IV contrast from the aortic arch through the vertex. Reconstruction of the source data set includes multiplanar 2D in the sagittal and coronal planes, and 3D coronal thin slab MIP series. Curb Builder images have been stored on PACS. Stenosis of the internal carotid arteries are calculated using NASCET criteria. CONTRAST: 75 mL of IV Isovue-370 One of the following dose optimization techniques was utilized in the performance of this exam: Automated exposure control; adjustment of the mA a nd/or kV according to the patient's size; or use of an iterative reconstruction technique. Specific details can be referenced in the facility's radiology CT exam operational policy. FINDINGS: Aortic arch and great vessels: Mild calcified plaque at the aortic arch. Coronary artery calcifications. Mild plaque at the origin of the left subclavian artery without flow-limiting stenosis. Right CCA/ICA: 0% stenosis of the origin of the right ICA. Aneurysm of the mid cervical right ICA measuring 1.4 x 1.1 cm in axial dimensions by 2.3 cm in length. Fusiform ectasia of the distal cervical right ICA measuring 7.5 mm in diameter. Left CCA/ICA: Mild plaque at the left carotid bulb without stenosis. 0% stenosis of the origin of the left ICA. Irregular aneurysmal dilation of the distal cervical left ICA, measuring up to 1 cm in diameter. Vertebrobasilar: Patent. Mild ectasia of the intracranial vertebral arteries and basilar artery. [place] of [place]: Posterior communicating arteries are hypoplastic or absent. Anterior communicating artery is unremarkable. GABBY circulation: A moderate or severe focal stenosis in the left pericallosal artery. MCA circulation: Relatively diminished caliber of the distal left MCA branches within the old infarct in the left frontal lobe. No evidence of acute arterial occlusion. RUBY [employer] RA[employer]S SOFTWARE DEVELOPER circulation: Severe focal stenosis in the proximal P2 segment of the right posterior cerebral artery. Additional non-angiographic findings: Advanced disc degenerative changes at C5-6. Cyst or nodule along the posterior surface of the anterior hyoid bone measuring 2.4 x 2.1 x 1.6 cm. IMPRESSION: No evidence of acute arterial occlusion in the head or neck. Relatively diminished caliber of the arterial branches within the old left MCA territory infarct in the left frontal lobe. 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 Moderate or severe focal stenosis of the left pericallosal artery. Severe focal stenosis of the proximal P2 segment of the right posterior cerebral artery. Cyst or nodule along the posterior surface of the hyoid bone measuring 2.4 x 2.1 x 1.6 cm. 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 Report Dictated By: Florin Ojeda MD at 04/30/2018 2:01 PM Report E-Signed By: Florin Ojeda MD at 04/30/2018 2:36 PM WSN:[id number] Assessment and Plan Problems: (1) CVA (cerebral vascular accident) Status: Acute Assessment & Plan: It appears he has had a stroke in the recent past, which may be responsible for some of his cognitive changes as well as difficulty ambulating/making it to BR. Will check echocardiogram and carotid ultrasound. Some aneurysmal changes were seen on CT angiography. Will start on aspirin 325mg daily. Watch on telemetry. Will have PT/OT/ST see. (2) Hypertension Status: Chronic Assessment & Plan: He has been on lisinopril 30mg daily, but unsure how reliably. Will start lisinopril 10mg daily and watch closely. Try to avoid lowering too aggressively. (3) Metabolic acidemia Status: Acute Assessment & Plan: I suspect this is probably related to his metformin for his type 2 DM. Will stop it at this point. Will give gentle IV fluids. Watch lactate levels. (4) Urinary retention Status: Acute Assessment & Plan: Crump cath is now in place. Will see about possibly starting alpha bela in near future once medical problems are a bit more stable. May n eed to see urology as well. (5) Hyperglycemia due to type 2 diabetes mellitus Status: Acute Assessment & Plan: Will be stopping his metformin at this time due to lactic acidosis. Will monitor glucoses and use SSI as needed. (6) Hypokalemia Status: Acute Assessment & Plan: Will replace with IV fluids. Watch labs. Venous Thromboembolism Antithrombotics Is Pt On Any Antithrombotics?: Yes Exam Sepsis Risk: No Definite Risk Problem Qualifiers (1) CVA (cerebral vascular accident): CVA mechanism: unspecified Qualified Codes: I63.9 - Cerebral infarction, unspecified LUIS DUENAS MD Apr 30, 2018 16:22
[2018-04-30] MEDS ORDERED: KCL/NS* 20 MEQ/1000 ML PREMIX 1,000 ML IV SCH (17:00)
[2018-04-30 18:58] VITALS: BP 193/109
[2018-04-30 19:37] VITALS: BP 175/100
[2018-04-30] MEDS: LISINOPRIL 10 MG TAB PO SCH (20:38)
[2018-04-30 23:28] VITALS: BP 179/127
[2018-05-01 05:51] VITALS: BP 151/92
[2018-05-01 06:32] LABS: PLATELET COUNT, AUTOMATED 221 K/uL (150-450)
[2018-05-01 07:05] VITALS: BP 167/107
[2018-05-01] MEDS: INSULIN HUM LISPRO 100 UN/ML 3 ML VIAL SUBQ PRN ×4 (07:26→21:05)
[2018-05-01] MEDS ORDERED: ENOXAPARIN 40 MG/0.4ML SYR SC SCH (09:00)
[2018-05-01] MEDS: LISINOPRIL 10 MG TAB PO SCH (09:04)
[2018-05-01] MEDS: ASPIRIN 325 MG TAB PO SCH (09:04)
[2018-05-01] MEDS ORDERED: POTASSIUM CHL 20 MEQ TABCR PO ONE (11:10)
--- NOTE | 2018-05-01 11:20 | RADIOLOGY IMAGING REPORT ---
FACILITY: [facility] PATIENT NAME: Fito Lane : 1950 MR: [id number] V: [id number] EXAM DATE: ORDERING PHYSICIAN: LUIS DUENAS TECHNOLOGIST: Location: [facility] Patient: Fito Lane : 1950 Visit/Account:[id number] Date of Sevice: 04/30/2018 Bilateral carotid artery Doppler duplex ultrasound scan. 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 HISTORY: Neck CTA scan 04/30/2018. A color flow Doppler duplex ultrasound scan with spectral analysis was performed on the carotid and v ertebral arteries bilaterally. Measurement of carotid stenosis is based on velocity parameters that correlate the residual internal carotid diameter with [place] Citizen Symptomatic Carotid Endarterecto my Trial (NASCET)- based stenosis levels. Right carotid peak systolic velocities are as follows: [place] right ICA - 55 cm/sec. Mid right ICA - 61 cm/sec. Proximal right ICA - 63 cm/sec. Right carotid bulb - 122 cm/sec. Superior right CCA - 124 cm/sec. Mid right CCA- 151 cm/sec. Inferior right CCA- 126 cm/sec. Proximal right ECA- 75 cm/sec. Mid right vertebral- 39 cm/sec. Right ICA/CCA ratio- 0.4 ( normal < 1.5 ). Antegrade right vertebral artery flow- YES. Left carotid peak systolic velocities are as follows: [place] left ICA - 56 cm/sec. Mid left ICA- 52 cm/sec. Proximal left ICA- 108 cm/sec. Left carotid bulb- 117 cm/sec. Superior left CCA- 121 cm/sec. Mid left CCA- 134 cm/sec. Inferior left CCA- 127 cm/sec. Proximal left ECA- 116 cm/sec. Mid left vertebral- 49 cm/sec. Left ICA/CCA ratio- 0.8 ( normal < 1.5). Antegrade left vertebral artery flow- YES. Mild intimal thickening is present in the carotid bulbs and proximal internal carotid arteries bilate rally. Velocities are mildly elevated in the common carotid arteries bilaterally however no focal st enoses are identified by visual criteria. The internal carotid arteries in the upper cervical region are obscured. IMPRESSION: Negative for evidence of significant carotid stenosis. Report Dictated By: Eb Ingram MD at 05/01/2018 11:11 AM Report E-Signed By: Eb Ingram MD at 05/01/2018 11:16 AM WSN:[email or web address]
[2018-05-01 14:03] VITALS: Ht 162.6 cm; Wt 106.1 kg
[2018-05-01 14:27] VITALS: BP 170/96
--- NOTE | 2018-05-01 15:44 | Hospitalist Progress Note ---
Subjective Progress Notes Subjective 67M admitted with subacute stroke. Focal deficit might be word finding issues otherwise no weakness. Patient is difficult to follow on what happened though this could be due to psychiatric issues he is treated for. Patient Complains of: Neurological: No: Confusion Respiratory: No: Cough, Congestion Gastrointestinal: No Nausea Genitourinary: No Dysuria Musculoskeletal: No: Impaired Mobility Physical Exam Vital Signs Date Time Temp Pulse Resp B/P (MAP) Pulse Ox O2 Delivery O2 Flow Rate FiO2 05/01/18 14:27 99.0 81 24 170/96 (120) 92 Room Air Intake and Output 05/01/18 06:59 Intake Total 2360 ml Output Total 630 ml Balance 1730 ml Intake Oral 360 ml IV Total 2000 ml Output Urine Total 630 ml General Appearance: Alert, Awake, No Acute Distress Neuro: No Gross deficits (possible word finding difficulties.) Eyes: PERRLA ENT: Normal Neck: No Masses Cardiovascular: Normal Rhythm & Peripheral Pulses Respiratory: No Respiratory Distress GI: Soft and Non-Tender Musculoskeletal: No Weakness/Pain Extremities: Soft and Non Tender, Warm, Pulses, Perfused, Edema (RLE > L) Integumentary: Skin Intact without Lesion / Mass Psych: Other (odd affect, ) Result Diagram: 05/01/18 0540 05/01/18 0540 Monitor Interpretation: Normal Sinus Rhythm Assessment and Plan Problems: (1) CVA (cerebral vascular accident) Status: Acute Assessment & Plan: It appears he has had a stroke in the recent past, which may be responsible for some of his cognitive changes as well as difficulty ambulating/making it to BR. Will check echocardiogram and carotid ultrasound. Some aneurysmal changes were seen on CT angiography. Will start on aspirin 325mg daily. Watch on telemetry. Will have PT/OT/ST see. (2) Hypertension Status: Chronic Assessment & Plan: He has been on lisinopril 30mg daily, but unsure how reliably. BP remains elevated on 10 will increase to 20 mg. (3) Metabolic acidemia Status: Acute Assessment & Plan: I suspect this is probably related to his metformin for his type 2 DM. Will stop it at this point. Will give gentle IV fluids. Watch lactate levels. (4) Urinary retention Status: Acute Assessment & Plan: Will d/c [place], begin Tamsulosin. May need to see urology as well. (5) Hyperglycemia due to type 2 diabetes mellitus Status: Acute Assessment & Plan: Will be stopping his metformin at this time due to lactic acidosis. Will monitor glucoses and use SSI as needed. (6) Hypokalemia Status: Acute Assessment & Plan: Will replace with IV fluids. Watch labs. Exam Sepsis Risk: No Definite Risk Problem Qualifiers (1) CVA (cerebral vascular accident): CVA mechanism: unspecified Qualified Codes: I63.9 - Cerebral infarction, unspecified TERRELL STACK DO May 01, 2018 15:44
[2018-05-01] MEDS: TAMSULOSIN HCL 0.4 MG CAP PO SCH (16:17)
[2018-05-01 19:24] VITALS: BP 179/103
[2018-05-01] MEDS: INSULIN GLARGINE 100 U/ML 3 ML PEN SUBQ SCH (21:03)
[2018-05-01] MEDS: ATORVASTATIN 40 MG TAB PO SCH (21:04)
[2018-05-01 23:05] VITALS: BP 183/111
[2018-05-02 03:09] VITALS: BP 171/122
[2018-05-02] MEDS: INSULIN HUM LISPRO 100 UN/ML 3 ML VIAL SUBQ PRN ×4 (08:08→21:04)
[2018-05-02] MEDS: LISINOPRIL 20 MG TAB PO SCH (08:09)
[2018-05-02] MEDS: TAMSULOSIN HCL 0.4 MG CAP PO SCH (08:09)
[2018-05-02] MEDS: ASPIRIN 325 MG TAB PO SCH (08:09)
[2018-05-02 08:14] VITALS: BP 180/113
[2018-05-02 11:53] VITALS: BP 176/106
--- NOTE | 2018-05-02 11:55 | Hospitalist Progress Note ---
Subjective Progress Notes Subjective This patient was admitted for a frontal stroke. He had no acute events overnight. Patient Complains of: Cardiovascular: No: Chest Pain Respiratory: No: Shortness of Breath Physical Exam Vital Signs Date Time Temp Pulse Resp B/P (MAP) Pulse Ox O2 Delivery O2 Flow Rate FiO2 05/02/18 08:15 Room Air 05/02/18 08:14 98.2 81 12 180/113 (135) 93 05/02/18 03:09 1.0 Intake and Output 05/02/18 07:00 Intake Total 1173 ml Output Total 650 ml Balance 523 ml Intake Oral 1173 ml Output Urine Total 650 ml # Voids 5 # Bowel Movements 3 Cardiovascular: Regular Rate and Rhythm Respiratory: Clear to Auscultation Result Diagram: 05/01/18 0540 05/02/18 0526 Monitor Interpretation: Normal Sinus Rhythm Assessment and Plan Problems: (1) CVA (cerebral vascular accident) Status: Acute Assessment & Plan: It appears he has had a stroke in the recent past, which may be responsible for some of his cognitive changes as well as difficulty ambulating/making it to BR. Will check echocardiogram and carotid ultrasound. Some aneurysmal changes were seen on CT angiography. He has been started on aspirin. (2) Hypertension Status: Chronic Assessment & Plan: His lisinopril dose has been increased. (3) Metabolic acidemia Status: Acute Assessment & Plan: His metformin has been discontinued. (4) Urinary retention Status: Acute Assessment & Plan: He did require a catheter, but he has improved with tamsulosin. (5) Hyperglycemia due to type 2 diabetes mellitus Status: Acute Assessment & Plan: He has been started on Lantus. (6) Hypokalemia Status: Acute Assessment & Plan: Will replace with IV fluids. Watch labs. Exam Sepsis Risk: No Definite Risk Problem Qualifiers (1) CVA (cerebral vascular accident): CVA mechanism: unspecified Qualified Codes: I63.9 - Cerebral infarction, unspecified (2) Hypertension: Hypertension type: essential hypertension Qualified Codes: I10 - Essential (primary) hypertension MAG PRICE DO May 02, 2018 11:55
--- NOTE | 2018-05-02 12:40 | SPEECH INITIAL EVALUATION ---
SPEECH THERAPY system support specialist: Kaitlin Ny MS, CCC-[employer] Type of Assessment: Cognitive Linguistic Assessment Patient: Fito Lane : 1950, 67yrs Evaluation Date: 05/02/2018 BACKGROUND The patient is a 67 year old male admitted to med/surg from the ER with subacute left frontal lobe CVA. He lives at senior housing. Caregivers at [facility] report some recent confusion as well as reduced compliance with medication. He has no family in [place]. He has family in [place], but he does not seem to be in touch with them. He is currently receiving services from [facility]. Primary Medical Diagnosis: L CVA Pain Scale (0-10): Pt denies pain LOC / Participation: alert, pleasant, cooperative. Follows instructions: yes Orientation: A&O x4. Functional Communication Deficits impact swallow function/safety, or response to therapy: No. VOICE/ SPEECH Oral motor structure wnl Mild motor speech deficits noted during several word production attempts. Pt aware of errors but unable to self correct. Pt denies voice changes. COGNITION/COMMUNICATION Receptive language shows mild, intermittent deficits. Expressive language shows moderate deficits. Cognition shows mild-moderate deficits Pt was seen at bedside for cognitive linguistic assessment using the Ilir Cognitive Assessment (MOCA), Hewlett Naming Test (BNT) and informal evaluation procedures. Pt scored 11/30 on the MOCA,consistent with a severity level of moderate cognitive impairment (26/30 = WNL). Deficits primarily noted during executive function and language tasks. Areas of strength were, attention and orientation. Pt demonstrated potential for new learning across repeated practice opportunities. Receptive language is largely intact and pt executed basic instructions without error, more complex instructions required assistance through repetition and demonstration but the patient was ultimately successful. Mild reading deficits at word level are also present. Pt scored a 9/15 60% with confrontation naming of common objects (BNT). Pts language contains both semantic and phonemic paraphasias (e.g 'long winded guilt', when describing a rifle, and 'stampled' for 'stomped') as well as anomic events. He does not demonstrate awareness of paraphasias. He demonstrates some comprehension of hospitalization course, medical diagnoses, and plan of care but his expressive aphasia interferes with adequate communication of his wants/needs regarding his medical care. He demonstrates appropriate humor and social interaction. Overall, pt presents with moderate cognitive linguistic deficits and moderate expressive aphasia. He considered a high risk for safe for return to prior living situation as far as functional cognitive/communication abilities are concerned. If returning home, he would benefit from HH ST to address cognitive and communication deficits. Results indicate the patient may demonstrate decreased independence with the following IADL tasks: Independent medication management Medical appointment attendance - Following complex instructions including those for safety and medical information - Communicating medical information/ needs - Independent financial sales assistant RECOMMENDATION ST services are warranted for tx to assist pt with returning to of for cognitio and communicaiton. ST 4-5xwk POC STG Pt will communicate at sentence level his current medical needs Pt will demonstrate functional use of external strategies to participate in medical and medication management with min assist LTG Pt will demonstrate function cognitive communication for relaying medical and social needs/wants Thank you for this referral. Please call [phone] (outpatient rehab) or [phone] (inpatient rehab) to contact the [employer]. Respectfully, Kaitlin Ny M.S., [facility]-[employer] [facility]
--- NOTE | 2018-05-02 14:55 | Medical Nutrition Therapy ---
Nutrition Anthropometrics Height (Inches): 64.00 Height (Calculated Centimeters: 162.904409 Weight (Pounds): 234 Weight (Calculated Kilograms): 106.141 Cedric Nutrition Score: Probably Inadequate Cedric Nutrition Risk Score: 19 Dietary Referral Nutrition Risk Factors: Nutrition Risk Comment: Physical Findings Physical Appearance: Morbidly Obese 40+ Skin Appearance Skin Appearance: Edema Edema Location Modifier: Both Edema Location: Lower Extremity Type of Edema: Degree of Edema: 1+ Gastrointestinal Symptoms GI Symtoms: Diarrhea, Change in Bowel Pattern Tube Present: Bowel Sounds: Recent Bowel Pattern: Stool Characteristics: Nutritional Diagnosis Nutritional Risk Acuity 2: Blood Glucose > 300mg/dl Nutritional Risk Acuity 3: Morbid Obesity Nutritional Risk Acuity 4: Good Appetite Past Medical History: HTN, T2DM, obesity, depression Nutritional Acuity: 2-Moderate Nutrition Diagnosis: Over-weight/Obesity Nutrition Etiology: Physiological Causes Nutrition Problem/Etiology/Sym: AEB BMI 40.2 Energy Requirement: 2120 (20 KCAL/KG) Protein Requirement: 85 (.8GM/KG) Fluid Requirement: 2120 (1ML/KCAL) Nutrition Intervention: Cont diet as ordered, Encourage intake Nutritional Education Nutrition Education Topic: Diabetic Nutrition Learning Readiness: Not Interested Response to Teaching: Patient Refused Teaching Recipient: Patient Nutrition Counseling: Pt stated he was not interested in diet information for diabetes at this time. Nutrition Monitoring & Eval Nutrition Goals: Eat 75-100% Meal Nutrition Follow-Up: Good Intake RD Patient Assessment Time: [address] Assessment Type: RD Assessment Patient Nutrition Acuity: 2-Moderate Follow Up Date: May 07, 2018 Nutritional Comment: 05/01 Pt admitted for CVA and metabolic acidemia. Pt on diabetic diet and is eating 100%. Significant labs: trig 1259, BG up to 344, A1C 10.1, Alb 2.8, chol 231. Will monitor for s/s of swallowing issues. Will attempt diet education for diabetes. Pt may benifit from [facility]. 05/02 Pt states has no swallowing issues. Pt was eating at time of visit and no swallowing problems observed. Pt is eating 100% of diabetic diet. BG ranging 200-300's. Pt stated he is not interested in information for diet and diabetes at this time. Alb 3.3. pt has 1+ edema LLE, pt may have wt loss when edema resolved. Will cont to monitor and encourage healthy intake. MINE EVANS May 02, 2018 14:55
[2018-05-02 16:59] VITALS: BP 177/104
[2018-05-02 20:59] VITALS: BP 194/108
[2018-05-02] MEDS: INSULIN GLARGINE 100 U/ML 3 ML PEN SUBQ SCH (21:04)
[2018-05-02] MEDS: ATORVASTATIN 40 MG TAB PO SCH (21:05)
[2018-05-03 04:23] VITALS: BP 176/105
[2018-05-03 07:25] VITALS: BP 203/113
[2018-05-03 08:45] VITALS: BP 202/114
[2018-05-03] MEDS: INSULIN HUM LISPRO 100 UN/ML 3 ML VIAL SUBQ PRN (08:59)
[2018-05-03] MEDS: TAMSULOSIN HCL 0.4 MG CAP PO SCH (08:59)
[2018-05-03] MEDS: ASPIRIN 325 MG TAB PO SCH (08:59)
[2018-05-03] MEDS: LISINOPRIL 20 MG TAB PO SCH (08:59)
[2018-05-03] MEDS ORDERED: HYDROCHLOROTHIAZIDE 25 MG TAB PO SCH (09:05)
[2018-05-03] MEDS ORDERED: INSU100I30 SUBQ (10:45)
[2018-05-03] MEDS ORDERED: TAMS0.4C70 PO (10:45)
[2018-05-03] MEDS ORDERED: ATOR40TA69 PO (10:45)
[2018-05-03] MEDS ORDERED: ASPI-757 PO (10:45)
[2018-05-03] MEDS ORDERED: HYDR-2966 PO (10:45)
[2018-05-03] MEDS ORDERED: INSU100V24 SUBQ (10:45)
[2018-05-03] MEDS ORDERED: LISI20TA29 PO (10:45)
--- NOTE | 2018-05-03 10:58 | Hospitalist Depart ---
Discharge Summary Reason for Hosp/Final Diag: (1) CVA (cerebral vascular accident) Status: Acute Hospital Course & Plan: It appears he has had a stroke in the recent past, which may be responsible for some of his cognitive changes as well as difficulty ambulating/making it to BR. Echocardiogram and carotid ultrasound were without concerning findings. Some aneurysmal changes of the carotid were seen on CT angiography. He was started on aspirin. He will go to [facility]. PT/OT ordered for ongoing evaluation and treatment at [facility]. (2) Hypertension Status: Chronic Hospital Course & Plan: His lisinopril dose was increased to 20mg daily. HCTZ 1 2.5 was added as well. He will need BP monitoring and further adjustment of his medications at [facility]. (3) Metabolic acidemia Status: Acute Hospital Course & Plan: His metformin was discontinued due to metabolic acidosis and should not be restarted. (4) Urinary retention Status: Acute Hospital Course & Plan: He did require a catheter initially, but this was removed and he was able to urinate on tamsulosin. (5) Hyperglycemia due to type 2 diabetes mellitus Status: Acute Hospital Course & Plan: He was started on Lantus was discharged on 20u at HS plus sliding scale. His insulin dose will likely need to be adjusted at [facility]. He will need to be on a diabetic diet as well. (6) Hypokalemia Status: Acute Hospital Course & Plan: Potassium replaced and normalized. Departure Weight (Pounds): 234 Result Diagram: 05/01/18 0540 05/02/18 0526 Item Value Date Time Urine Opiates Screen Negative 04/30/18 1040 Urine Barbiturates Screen Negative 04/30/18 1040 Ur Tricyclic Antidepressants Screen Negative 04/30/18 1040 Urine Phencyclidine Screen Negative 04/30/18 1040 Urine Amphetamines Screen Negative 04/30/18 1040 Urine Benzodiazepines Screen Negative 04/30/18 1040 Urine Cocaine Screen Negative 04/30/18 1040 Urine Cannabinoids Screen Negative 04/30/18 1040 Serum Alcohol < 10 mg/dl 04/30/18 1015 Urine Color Yellow 04/30/18 1040 Urine Clarity Clear 04/30/18 1040 Urine pH 5.0 pH 04/30/18 1040 Urine Specific [place] 1.028 04/30/18 1040 Urine Protein 500 mg/dL 04/30/18 1040 Urine Glucose (UA) 500 mg/dL 04/30/18 1040 Urine Ketones Trace mg/dL 04/30/18 1040 Urine Blood Negative 04/30/18 1040 Urine Nitrite Negative 04/30/18 1040 Urine Bilirubin Negative 04/30/18 1040 Urine Urobilinogen 2.0 mg/dL 04/30/18 1040 Urine Leukocyte Esterase Negative 04/30/18 1040 Urine RBC 1 /HPF 04/30/18 1040 Urine WBC 3 /HPF 04/30/18 1040 Urine Squamous Epithelial Cells Many /LPF H 04/30/18 1040 Urine Bacteria Negative /HPF 04/30/18 1040 Urine Hyaline Casts Few /LPF 04/30/18 1040 Urine Mucus Few /HPF 04/30/18 1040 [facility] *LIVE* [address] [facility] [place] [address] ELEN GANDHI M.D., DIRECTOR OF LABORATORY SERVICES TERRELL DEL ROSARIO M.D., PATHOLOGIST RUN DATE: 05/03/18 Specimen Inquiry Report PAGE 1 RUN TIME: 826 ------ ------ PATIENT: CURTIS GALLEGOS ACCT: [id number] LOC: MED U: [id number] AGE/SX: 67/M ROOM: 2273 RE04/30/[address]: LUIS DUENAS MD : 1950 BED: 273 DIS: STATUS: ADM IN TLOC: SPEC #: [id number] MARTHA: 04/30/18 STATUS: RES REQ #: [id number] RECD: 04/30/[address] [facility] [address]: ROHITH GAMBOA MD SOURCE: BLOOD PER ENTR: 04/30/18-[address] [facility] [address]: JEANMARIE: ORDERED: BCGS, CULT BLOOD Procedure Result Verified BLOOD CULTURE GRAM STAIN Final 05/01/18-1037 AEROBIC BOTTLE POSITIVE GRAM POSITIVE COCCI POSITIVE BLOOD CULTURE GRAM STAIN REPORT CALLED TO: ADONAY ACEVEDO RN DATE/TIME REPORT CALLED: 05/01/18 1035 BY BLOOD CULTURE Preliminary 05/03/18 Organism 1 STAPHYLOCOCCUS EPIDERMIDIS GROWTH PRESENT IN THE AEROBIC BOTTLE BETA LACTAMASE: NEGATIVE NO GROWTH IN ANAEROBIC BOTTLE AT THIS TIME WILLIAM Penaloza.I.CAngel RX --------- --- CIPROFLOXACIN <=0.5 S CLINDAMYCIN <=0.25 S ERYTHROMYCIN 4 I GENTAMICIN <=0.5 S LEVOFLOXACIN <=0.12 S LINEZOLID 1 S OXACILLIN <=0.25 S BENZYLPENICILLIN <=0.03 S RIFAMPIN <=0.5 S TETRACYCLINE 2 S TRIMETHOPRIM/SULFAMETHOXAZOLE 40 S VANCOMYCIN 2 S END OF REPORT Imaging FACILITY: [facility] PATIENT NAME: Curtis Gallegos : 1950 MR: [id number] V: [id number] EXAM DATE: ORDERING PHYSICIAN: LUIS DUENAS TECHNOLOGIST: [facility] Patient: Curtis Gallegos : 1950 Visit/Account:[id number] Date of Sevice: 04/30/2018 Bilateral carotid artery Doppler duplex ultrasound scan. 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 HISTORY: Neck CTA scan 04/30/2018. A color flow Doppler duplex ultrasound scan with spectral analysis was performed on the carotid and vertebral arteries bilaterally. Measurement of carotid stenosis is based on velocity parameters that correlate the residual internal carotid diameter with [place] Symptomatic Carotid Endarterectomy Trial (NASCET)- based stenosis levels. Right carotid peak systolic velocities are as follows: Superior right ICA - 55 cm/sec. Mid right ICA - 61 cm/sec. Proximal right ICA - 63 cm/sec. Right carotid bulb - 122 cm/sec. Superior right CCA - 124 cm/sec. Mid right CCA- 151 cm/sec. Inferior right CCA- 126 cm/sec. Proximal right ECA- 75 cm/sec. Mid right vertebral- 39 cm/sec. Right ICA/CCA ratio- 0.4 ( normal < 1.5 ). Antegrade right vertebral artery flow- YES. Left carotid peak systolic velocities are as follows: Superior left ICA - 56 cm/sec. Mid left ICA- 52 cm/sec. Proximal left ICA- 108 cm/sec. Left carotid bulb- 117 cm/sec. Superior left CCA- 121 cm/sec. Mid left CCA- 134 cm/sec. Inferior left CCA- 127 cm/sec. Proximal left ECA- 116 cm/sec. Mid left vertebral- 49 cm/sec. Left ICA/CCA ratio- 0.8 ( normal < 1.5). Antegrade left vertebral artery flow- YES. Mild intimal thickening is present in the carotid bulbs and proximal internal carotid arteries bilaterally. Velocities are mildly elevated in the common carotid arteries bilaterally however no focal stenoses are identified by visual criteria. The internal carotid arteries in the upper cervical region are obscured. IMPRESSION: Negative for evidence of significant carotid stenosis. Report Dictated By: Eb Ingram MD at 05/01/2018 11:11 AM Report E-Signed By: Eb Ingram MD at 05/01/2018 11:16 AM WSN:AMICIVN EKG FACILITY: [facility] PATIENT NAME: CURTIS GALLEGOS : [id number] MR: [id number] V: [id number] EXAM DATE: ORDERING PHYSICIAN: ROHITH GAMBOA TECHNOLOGIST: EMMA Sandoval Reason : NEURO Blood Pressure : / mmHG Vent. Rate : 080 BPM Atrial Rate : 080 BPM P-R Int : 130 ms QRS Dur : 122 ms QT Int : 422 ms P-R-T Axes : 038 -32 004 degrees QTc Int : 486 ms Sinus rhythm Left axis deviation Right bundle branch block T wave inversion through precordial leads Abnormal ECG Confirmed by LUIS DUENAS ([id number]) on 04/30/2018 3:40:37 PM Referred By: COOPRE Confirmed By:LUIS DUENAS [id number] T: PORTIA/ Condition: Improved Discharge: Care Home PT/OT Follow Up For: PT Evaluation and Treat, OT Evaluation and Treat Discharge Code Status: Full Code Time Spent: < 30 min Discharge Instructions Home Meds Active Scripts Tamsulosin Hcl (TAMSULOSIN HCL) 0.4 Mg Cap.er.24h, 0.4 MG PO QDAY, #30 CAP Prov:EMY DUENAS MD 05/03/18 Lisinopril (LISINOPRIL) 20 Mg Tablet, 20 MG PO QDAY, #30 TAB Prov:EMY DUENAS MD 05/03/18 Insulin Lispro 100 Un/Ml Vial (HUMALOG 100 U/ML VIAL) 100 Unit/1 Ml Vial, 2-10 UNIT SUBQ SS PRN for SLIDING SCALE INSULIN, #1 VIAL Prov:EMY DUENAS MD 05/03/18 Insulin Glargine 100 Un/Ml Pen (LANTUS SOLOSTAR PEN) 100 Unit/1 Ml Insuln.pen, 20 UNIT SUBQ QHS, #1 VIAL Prov:EMY DUENAS MD 05/03/18 Hydrochlorothiazide (HYDROCHLOROTHIAZIDE) 25 Mg Tablet, 12.5 MG PO QDAY, #30 TAB Prov:EMY DUENAS MD 05/03/18 Atorvastatin Calcium (ATORVASTATIN CALCIUM) 40 Mg Tablet, 40 MG PO QHS, #30 TAB Prov:EMY DUENAS MD 05/03/18 Aspirin (ASPIRIN) 325 Mg Tablet, 325 MG PO QDAY, #30 TAB Prov:EMY DUENAS MD 05/03/18 Metformin Hcl (METFORMIN HCL) 1,000 Mg Tablet, 1 TAB PO BID, #60 TAB 0 Refills Prov:RINKU PALMER Ca [place] 02/25/16 Reported Medications Citalopram Hydrobromide (CELEXA) 20 Mg Tablet, 20 MG PO QDAY, #5 TAB 09/17/17 [place]-3 Fatty Acids/Fish Oil (FISH OIL 1,000 MG SOFTGEL) 1 Each Capsule, 1 EACH PO DAILY, CAPSULE 09/17/17 Cholecalciferol (Vitamin D3) (VITAMIN D3) 1,000 Unit Tablet, 3000 UNIT PO DAILY, TAB 09/17/17 Multivitamin (DAILY MULTIPLE VITAMIN) 1 Each Tablet, 1 EACH PO DAILY 09/17/17 Lisinopril (LISINOPRIL) 10 Mg Tablet, 30 MG PO QDAY, TAB 09/13/17 Glipizide (GLIPIZIDE) 5 Mg Tablet, 5 MG PO DAILY 09/13/17 Atorvastatin Calcium (LIPITOR) 40 Mg Tablet, 1 TAB PO QHS, TAB 09/13/17 Diet: Diabetic Activity: As Tolerated Special Instructions: The patient should follow up with his PCP, Ahmet Duran APRN, if she sees patients at [facility] in the next 1-2 weeks. Copies to: AHMET DURAN APRN ; Venous Thromboembolism Antithrombotics Is Pt On Any Antithrombotics?: Yes Problem Qualifiers (1) CVA (cerebral vascular accident): CVA mechanism: unspecified Qualified Codes: I63.9 - Cerebral infarction, unspecified (2) Hypertension: Hypertension type: essential hypertension Qualified Codes: I10 - Essential (primary) hypertension EMY DUENAS MD May 03, 2018 10:58
[2018-05-03] MEDS ORDERED: INSULIN GLARGINE 100 U/ML 3 ML PEN SUBQ SCH (21:00)
== END 2018-05-03 11:30 | disposition home or self-care (01) | DRG 65 ==
LOC: ER 10:11 → MED 15:25
PROVIDERS: ADMIT Internal Medicine; ATTEND Internal Medicine
DX: I63.9 Cerebral infarction, unspecified (principal); E87.2 Acidosis; I66.21 Occlusion and stenosis of right posterior cerebral artery; I10 Essential (primary) hypertension; N40.1 Benign prostatic hyperplasia with lower urinary tract symptoms; R15.9 Full incontinence of feces; E78.5 Hyperlipidemia, unspecified; R62.7 Adult failure to thrive; F32.9 Major depressive disorder, single episode, unspecified; T38.3X5A Adverse effect of insulin and oral hypoglycemic [antidiabetic] drugs, initial encounter; R33.8 Other retention of urine; E87.6 Hypokalemia; E78.00 Pure hypercholesterolemia, unspecified; F22 Delusional disorders; Z91.5 Personal history of self-harm; Z91.14 Patient's other noncompliance with medication regimen; Z79.84 Long term (current) use of oral hypoglycemic drugs
CPT/HCPCS: 36415; 36416; 70450; 70496; 70498; 71045; 80305; 80320; 81001; 82040; 82140; 82247; 82310; 82374; 82375; 82435; 82465; 82550; 82565; 82947; 82948; 83036; 83605; 83718; 83735; 84075; 84132; 84155; 84295; 84443; 84450; 84460; 84478; 84484; 84520; 85025; 87040; 87077; 87088; 87186; 93005; 93306; 93880; 96360; 96361; 96374; 97162; 97166; 99284; C1758; J1650; J1815; J3411; J3480; J7030; J7050; Q9967

== ENCOUNTER → 2018-04-30 | Outpatient (CLI) | payer MEDICARE, MEDICAID ==
[~2018-04-30] MED LIST changes: +ASPI-757 PO; +HYDR-2966 PO; +INSU100I30 SUBQ; +INSU100V24 SUBQ; +LISI20TA29 PO; +TAMS0.4C70 PO
[2018-05-01 14:03] VITALS: BMI 40.2
== END ==
LOC: AMB 09:43
PROVIDERS: ATTEND Nurse Practitioner
DX: R41.82 Altered mental status, unspecified (principal); R73.9 Hyperglycemia, unspecified; I10 Essential (primary) hypertension; F41.9 Anxiety disorder, unspecified
CPT/HCPCS: A0425; A0429

== ENCOUNTER → 2018-05-13 | Outpatient (REF) | payer MEDICARE, MEDICAID ==
[2018-05-01 14:03] VITALS: BMI 40.2
[~2018-05-13] MED LIST changes: +ASPI-757 PO; +HYDR-2966 PO; +INSU100I30 SUBQ; +INSU100V24 SUBQ; +LISI20TA29 PO; +TAMS0.4C70 PO
== END ==
LOC: ZZLCC 16:06
PROVIDERS: ATTEND Family Medicine
DX: E11.65 Type 2 diabetes mellitus with hyperglycemia (principal)
CPT/HCPCS: 83036

== ENCOUNTER → 2018-08-01 | Outpatient (REF) | payer MEDICARE, MEDICAID | LOC: ZZLCC 18:10 → MERGE 18:10 | PROVIDERS: ATTEND Family Medicine | DX: R41.0 Disorientation, unspecified (principal) | CPT/HCPCS: 85027 ==

== ENCOUNTER → 2018-08-14 | Outpatient (REF) | payer OTHER, MEDICARE, MEDICAID ==
[2018-05-01 14:03] VITALS: BMI 40.2
== END ==
LOC: ZZLCC 10:28
PROVIDERS: ATTEND Family Medicine
DX: E11.65 Type 2 diabetes mellitus with hyperglycemia (principal)
CPT/HCPCS: 83036

== ENCOUNTER → 2018-09-21 | Outpatient (REF) | payer MEDICARE, MEDICAID ==
[2018-05-01 14:03] VITALS: BMI 40.2
[2018-09-21 16:47] LABS: PLATELET COUNT, AUTOMATED 249 K/uL (150-450)
== END ==
LOC: ZZSENDIN 16:21
PROVIDERS: ATTEND Family Medicine
DX: I69.319 Unspecified symptoms and signs involving cognitive functions following cerebral infarction (principal)
CPT/HCPCS: 82040; 82247; 82310; 82374; 82435; 82565; 82947; 84075; 84132; 84155; 84295; 84450; 84460; 84520; 85025

== ENCOUNTER → 2018-10-26 | Outpatient (REF) | payer MEDICARE, MEDICAID ==
[2018-05-01 14:03] VITALS: BMI 40.2
== END ==
LOC: ZZLCC 13:05
PROVIDERS: ATTEND Family Medicine
DX: E11.65 Type 2 diabetes mellitus with hyperglycemia (principal)
CPT/HCPCS: 83036

== ENCOUNTER → 2019-01-27 | Outpatient (REF) | payer MEDICARE, MEDICAID ==
[2018-05-01 14:03] VITALS: BMI 40.2
== END ==
LOC: ZZLCC 18:15
PROVIDERS: ATTEND Family Medicine
DX: E11.9 Type 2 diabetes mellitus without complications (principal)
CPT/HCPCS: 83036